=== PATIENT | female | born 1975 | race Caucasian/White ===

== ENCOUNTER 2017-09-05 14:44 | Emergency (ER) | payer BC, SELFPAY | END 2017-09-05 15:55 | disposition left against medical advice (07) | PROVIDERS: Emergency Provider Nurse Practitioner Family; Family Provider Emergency Medicine; PCP Emergency Medicine | DX: Z53.29 Procedure and treatment not carried out because of patient's decision for other reasons (principal) ==

== ENCOUNTER 2017-09-09 20:38 | Emergency (ER) | payer BC, SELFPAY ==
[2017-09-09 20:39] VITALS: BP 111/73; PULSE 97; RESP 16; TEMP 36.8; O2SAT 96; BMI 42.1
[2017-09-09 20:40] VITALS: BMI 42.1
--- NOTE | 2017-09-09 20:58 | XR_ITS ---
XR chest 2V HISTORY: ITS.REASON: chest pain ORDERING PHYSICIAN: Vipul Velazquez MD PATIENT AGE: 41 years COMPARISON: 11/11/2015 FINDINGS: The cardiomediastinal silhouette and pulmonary vascularity are within normal limits. The lungs are clear without infiltrates, suspicious nodules, or pleural effusions. No acute bony abnormalities. IMPRESSION: Negative chest, no acute finding
[2017-09-09 21:31] LABS: Alanine Aminotransferase 21 U/L (12-78); Albumin Level 3.8 gm/dL (3.4-5.0); Albumin/Globulin Ratio 1.1 (1.1-1.8); Alkaline Phosphatase 53 U/L (46-116); Aspartate Amino Transferase 11 U/L (15-37); Bilirubin,Total 0.2 mg/dL (0.2-1.0); Blood Urea Nitrogen 12 mg/dL (7-18); Carbon Dioxide 26 mmol/L (21.0-32.0); Chloride 105 mmol/L (98-107); Creatinine Clearance Estimated 71 mL/min (0-300); Creatinine,Serum 1.03 mg/dL (0.55-1.02); Estimated Glomerular Filt Rate 59 ml/min (>60); GFR (African American) 72 ML/MIN (>60); Globulin 3.5 gm/dl (1.3-3.2); Glucose 151 mg/dL (74-106); Sodium 140 mmol/L (136-145); Total Protein,Serum 7.3 gm/dL (6.4-8.2); Troponin I < 0.02 ng/ml (0.00-0.06)
[2017-09-09 21:39] LABS: Basophils # 0.1 K/mm3 (0-0.2); Basophils % 0.5 % (0.1-2.0); Eosinophils # 0.3 K/mm3 (0.0-0.4); Eosinophils % 2.7 % (0.1-12.0); Hematocrit 45.2 % (37.0-47.0); Hemoglobin 14.7 g/dL (12.2-16.2); Lymphocytes # 2.4 K/mm3 (0.7-4.5); Lymphocytes % 26.1 K/mm3 (10-50); Mean Corpuscular HGB Conc 32.5 g/dL (31.8-35.4); Mean Corpuscular Hemoglobin 29.2 pg (27.0-31.2); Mean Corpuscular Volume 89.7 fl (81-99); Mean Platelet Volume 8.2 fl (7.4-10.4); Monocytes # 0.4 K/mm3 (0.1-1.0); Monocytes % 4.4 % (1.7-9.3); Neutrophils # 6.2 K/mm3 (1.8-7.8); Neutrophils % 66.3 % (37.0-80.0); Platelet Count 357 K/mm3 (142-424); Red Blood Count 5.04 M/mm3 (4.20-5.40); Red Cell Distribution Width 13.3 % (11.5-17.5); White Blood Count 9.3 K/mm3 (4.8-10.8)
[2017-09-09 21:50] LABS: Urine Pregnancy, HCG Qual. Negative (Negative)
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
--- NOTE | 2017-09-09 22:07 | ED_ITS ---
ED Disposition Clinical Impression: Atypical chest pain, Bronchitis Disposition: Home, Self-Care Condition on Discharge: Good Instructions: DI for Atypical Chest Pain Additional Instructions: use meds and see pcp for follow up next week Prescriptions: Azithromycin [Zithromax 250mg tab] 250 mg PO DIRECTED #6 tab Referrals: Vipul Velazquez MD [Primary Care Provider] - - Critical Care Critical Care Time: No Attestation: On 09/09/17, the high probability of a clinically significant, sudden or life threatening deterioration of the following system(s) required my full and direct attention, intervention and personal management. The time I documented below is in addition to time spent performing reported procedures but includes the following listed in this critical care notation. Medical Decision Making - Medical Records Medical records reviewed: Yes: I reviewed the patient's medical records. Vital Signs: 09/09/17 20:39 Temperature 98.2 F Temperature Source Oral Pulse Rate [Left Radial] 97 H Respiratory Rate 16 Blood Pressure [Right Arm] 111/73 Blood Pressure Mean [Right Arm] 85 Blood Pressure Source [Right Arm] Automatic Cuff Blood Pressure Position [Right Arm] Sitting 02 Sat by Pulse Oximetry 96 Oxygen Delivery Method Room Air - Lab Data Lab results reviewed: Yes: I reviewed the patient's lab results. Lab Results 09/09/17 21:00: WBC 9.3, RBC 5.04, Hgb 14.7, Hct 45.2, MCV 89.7, MCH 29.2, MCHC 32.5, RDW 13.3, Plt Count 357, MPV 8.2, Neut % (Auto) 66.3, Lymph % (Auto) 26.1 , [place] % (Auto) 4.4, Eos % (Auto) 2.7, Baso % (Auto) 0.5, Neut # (Auto) 6.2, Lymph # (Auto) 2.4, [place] # (Auto) 0.4, Eos # (Auto) 0.3, Baso # (Auto) 0.1 09/09/17 21:00: Sodium 140, Potassium 4.0, Chloride 105, Carbon Dioxide 26, Anion Gap 13.0, BUN 12, Creatinine 1.03 H, Estimated Creat Clear 71, Estimated GFR 59, Est GFR ( Amer) 72, Glucose 151 H, Calcium 9.0, Total Bilirubin 0.2, AST 11 L, ALT 21, Alkaline Phosphatase 53, Troponin I < 0.02, Total Protein 7.3, Albumin 3.8, Globulin 3.5 H, Albumin/Globulin Ratio 1.1 09/09/17 21:30: Urine HCG, Qual Negative Result diagrams: 09/09/17 21:00 09/09/17 21:00 Orders (Tests/Meds): ED MEDICATIONS Discontinued Medications Generic Name Dose Route Start Last Admin Trade Name Freq PRN Reason Stop Dose Admin Aspirin 324 mg 09/09/17 20:58 09/09/17 21:34 Aspirin 81mg Chewable Tablet PO 09/09/17 20:59 324 mg ONCE ONE Administration ORDERS Category Date Time Status XR chest 2V Stat Exams 09/09/17 20:58 Taken Troponin I Q3H Lab 09/10/17 00:00 Ordered Troponin I Q3H Lab 09/10/17 03:00 Ordered ECG Request by /Susan Stat Y 09/09/17 20:58 Ordered - Radiology Data #1 Image(s): Chest Image Reviewed: Yes I reviewed the patient's radiology image Preliminary Findings: Normal/NAD - ECG Data Tracing #1 I reviewed this ECG and interpreted as documented below: Ischemic changes: non-specific ST-T wave changes - Scot Inquiry Pt receiving controlled substance: No Chest Pain HPI - General Chief Complaint: Chest Pain Stated Complaint: chest pain Time Seen by Provider: 09/09/17 22:10 Mode of Arrival: Ambulatory Source of Information: Patient, Relative, Medical Record Limitations: No Limitations Description of S
[2017-09-09 22:35] VITALS: BP 97/72; PULSE 87; RESP 16; TEMP 37.1; O2SAT 98
== END 2017-09-09 22:38 | disposition home or self-care (01) ==
PROVIDERS: Emergency Provider Emergency Medicine; Family Provider Emergency Medicine; PCP Emergency Medicine
DX: R07.89 Other chest pain (principal); I10 Essential (primary) hypertension; E11.9 Type 2 diabetes mellitus without complications; Z79.84 Long term (current) use of oral hypoglycemic drugs; F17.210 Nicotine dependence, cigarettes, uncomplicated; Z79.899 Other long term (current) drug therapy; Z88.8 Allergy status to other drugs, medicaments and biological substances
CPT/HCPCS: 71046; 80053; 81025; 84484; 85025; 93005; 93041; 99284

== ENCOUNTER → 2017-11-10 08:48 | Outpatient (REF) | payer BC, SELFPAY ==
[2017-11-10 13:30] LABS: Basophils # 0.1 K/mm3 (0-0.2); Basophils % 0.4 % (0.1-2.0); Eosinophils # 0.2 K/mm3 (0.0-0.4); Eosinophils % 2.1 % (0.1-12.0); Hematocrit 48.3 % (37.0-47.0); Hemoglobin 15.3 g/dL (12.2-16.2); Lymphocytes # 2.4 K/mm3 (0.7-4.5); Lymphocytes % 20.8 K/mm3 (10-50); Mean Corpuscular HGB Conc 31.6 g/dL (31.8-35.4); Mean Corpuscular Hemoglobin 29.6 pg (27.0-31.2); Mean Corpuscular Volume 93.8 fl (81-99); Monocytes # 0.6 K/mm3 (0.1-1.0); Monocytes % 5.2 % (1.7-9.3); Neutrophils # 8.1 K/mm3 (1.8-7.8); Neutrophils % 71.5 % (37.0-80.0); Platelet Count 344 K/mm3 (142-424); Red Blood Count 5.15 M/mm3 (4.20-5.40); Red Cell Distribution Width 13.6 % (11.5-17.5); White Blood Count 11.4 K/mm3 (4.8-10.8)
[2017-11-10 13:53] LABS: HCG Qualitative, Serum Negative (Negative)
[2017-11-10 14:01] LABS: Alanine Aminotransferase 30 U/L (12-78); Albumin Level 3.8 gm/dL (3.4-5.0); Albumin/Globulin Ratio 1.1 (1.1-1.8); Alkaline Phosphatase 55 U/L (46-116); Anion Gap 14.5 mEq/L (5-15); Aspartate Amino Transferase 10 U/L (15-37); Bilirubin,Total 0.1 mg/dL (0.2-1.0); Blood Urea Nitrogen 11 mg/dL (7-18); Carbon Dioxide 25 mmol/L (21.0-32.0); Chloride 105 mmol/L (98-107); Cholesterol 260 mg/dL (140-200); Creatinine,Serum 0.79 mg/dL (0.55-1.02); Estimated Glomerular Filt Rate 81 ml/min (>60); Free T4 (Free Thyroxine) 1.13 ng/dl (0.76-1.46); GFR (African American) 98 ML/MIN (>60); Globulin 3.4 gm/dl (1.3-3.2); HDL Cholesterol 29 mg/dL (29-89); Potassium 4.5 mmoL/L (3.5-5.1); Sodium 140 mmol/L (136-145); Thyroid Stimulating Hormone 2.96 uIU/ml (0.358-3.740); Total Protein,Serum 7.2 gm/dL (6.4-8.2)
[2017-11-10 14:02] LABS: Triglycerides 567 mg/dL (30-200)
[2017-11-10 14:03] LABS: Glucose 129 mg/dL (74-106)
[2017-11-11 10:30] LABS: Vitamin D 25 Hydroxy 7.1 ng/mL (30.0-100.0)
== END ==
LOC: LAB 08:48
PROVIDERS: Visit Provider Nurse Practitioner Family
DX: R53.83 Other fatigue (principal)
CPT/HCPCS: 80053; 80061; 82652; 83036; 84439; 84443; 84703; 85025

== ENCOUNTER → 2017-11-25 10:31 | Outpatient (CLI) | payer BC, SELFPAY ==
[2017-11-25 10:47] LABS: Basophils % 0.4 % (0.1-2.0); Eosinophils # 0.3 K/mm3 (0.0-0.4); Eosinophils % 2.4 % (0.1-12.0); Hematocrit 44.8 % (37.0-47.0); Hemoglobin 14.9 g/dL (12.2-16.2); Lymphocytes # 2.7 K/mm3 (0.7-4.5); Lymphocytes % 24.3 K/mm3 (10-50); Mean Corpuscular HGB Conc 33.3 g/dL (31.8-35.4); Mean Corpuscular Hemoglobin 30.1 pg (27.0-31.2); Mean Corpuscular Volume 90.3 fl (81-99); Mean Platelet Volume 7.6 fl (7.4-10.4); Monocytes # 0.5 K/mm3 (0.1-1.0); Monocytes % 4.4 % (1.7-9.3); Neutrophils # 7.6 K/mm3 (1.8-7.8); Neutrophils % 68.6 % (37.0-80.0); Platelet Count 368 K/mm3 (142-424); Red Blood Count 4.96 M/mm3 (4.20-5.40); Red Cell Distribution Width 13.9 % (11.5-17.5)
[2017-11-25 11:23] LABS: Alanine Aminotransferase 23 U/L (12-78); Albumin Level 3.7 gm/dL (3.4-5.0); Albumin/Globulin Ratio 1.1 (1.1-1.8); Alkaline Phosphatase 54 U/L (46-116); Anion Gap 13.2 mEq/L (5-15); Aspartate Amino Transferase 16 U/L (15-37); Bilirubin,Total 0.2 mg/dL (0.2-1.0); Blood Urea Nitrogen 16 mg/dL (7-18); Calcium 9.1 mg/dL (8.5-10.1); Carbon Dioxide 25 mmol/L (21.0-32.0); Chloride 103 mmol/L (98-107); Chol/HDL Ratio 8.5 (1-3.5); Cholesterol 255 mg/dL (140-200); Creatinine,Serum 0.83 mg/dL (0.55-1.02); Estimated Glomerular Filt Rate 76 ml/min (>60); GFR (African American) 92 ML/MIN (>60); Globulin 3.4 gm/dl (1.3-3.2); Glucose 113 mg/dL (74-106); HDL Cholesterol 30 mg/dL (29-89); Potassium 4.2 mmoL/L (3.5-5.1); Sodium 137 mmol/L (136-145); Total Protein,Serum 7.1 gm/dL (6.4-8.2)
[2017-11-25 11:28] LABS: Triglycerides 437 mg/dL (30-200)
== END ==
PROVIDERS: Visit Provider Family Medicine
DX: D64.9 Anemia, unspecified (principal); E11.9 Type 2 diabetes mellitus without complications
CPT/HCPCS: 36415; 80053; 80061; 85025

== ENCOUNTER → 2018-01-11 10:54 | Outpatient (CLI) | payer BC, SELFPAY ==
[2018-01-11 13:44] LABS: Free Thyroxine Index 3.1 ug/dL (5.93-13.13); T4 (Thyroxine) 8.8 ug/dl (4.7-13.3); Thyroid Stimulating Hormone 2.28 uIU/ml (0.358-3.740); Triiodothryronine (T3) Uptake 35 % (31-39)
[2018-01-12 07:21] LABS: Thyroid Peroxidase Antibodies 13 IU/mL (0-34)
[2018-01-12 15:17] LABS: FSH 33.2 mIU/mL (.); LH 21.2 mIU/mL (.); Triiodothyronine (T3) Free 2.6 pg/mL (2.0-4.4)
== END ==
PROVIDERS: Visit Provider Nurse Practitioner Obstetrics & Gynecology
DX: N93.9 Abnormal uterine and vaginal bleeding, unspecified (principal)
CPT/HCPCS: 36415; 83001; 83002; 84436; 84443; 84479; 84481; 86376

== ENCOUNTER → 2018-06-07 10:10 | Outpatient (POV) | payer BC, SELFPAY | PROVIDERS: Family Provider Emergency Medicine; PCP Nurse Practitioner Family; Visit Provider Specialist | DX: R20.2 Paresthesia of skin (principal) | CPT/HCPCS: 95886; 95909 ==

== ENCOUNTER → 2018-06-22 11:36 | Outpatient (CLI) | payer BC, SELFPAY ==
[2018-06-22 12:53] LABS: Alanine Aminotransferase 22 U/L (12-78); Albumin Level 3.7 gm/dL (3.4-5.0); Albumin/Globulin Ratio 1.2 (1.1-1.8); Alkaline Phosphatase 51 U/L (46-116); Anion Gap 15.5 mEq/L (5-15); Aspartate Amino Transferase 15 U/L (15-37); Bilirubin,Total 0.3 mg/dL (0.2-1.0); Blood Urea Nitrogen 18 mg/dL (7-18); Carbon Dioxide 26 mmol/L (21.0-32.0); Chloride 105 mmol/L (98-107); Chol/HDL Ratio 6.9 (1-3.5); Cholesterol 271 mg/dL (140-200); Creatinine,Serum 0.72 mg/dL (0.55-1.02); Estimated Glomerular Filt Rate 89 ml/min (>60); GFR (African American) 108 ML/MIN (>60); Glucose 100 mg/dL (74-106); HDL Cholesterol 39 mg/dL (29-89); LDL Cholesterol 178 mg/dL (0-130); Potassium 4.5 mmoL/L (3.5-5.1); Sodium 142 mmol/L (136-145); Total Protein,Serum 6.7 gm/dL (6.4-8.2); Triglycerides 271 mg/dL (30-200); VLDL Cholesterol 54 mg/dL (0-40)
== END ==
PROVIDERS: PCP Family Medicine; Visit Provider Family Medicine
DX: E11.9 Type 2 diabetes mellitus without complications (principal)
CPT/HCPCS: 36415; 80053; 80061

== ENCOUNTER → 2018-06-30 20:05 | Outpatient (CLI) | payer BC, SELFPAY | PROVIDERS: Visit Provider Nurse Practitioner Family | DX: J02.9 Acute pharyngitis, unspecified (principal) ==

== ENCOUNTER → 2018-10-28 11:31 | Outpatient (CLI) | payer BC, SELFPAY ==
[2018-10-28 12:06] LABS: Basophils # 0.1 K/mm3 (0-0.2); Basophils % 0.6 % (0.1-2.0); Eosinophils # 0.2 K/mm3 (0.0-0.4); Eosinophils % 1.7 % (0.1-12.0); Hematocrit 43.9 % (37.0-47.0); Lymphocytes # 2.5 K/mm3 (0.7-4.5); Mean Corpuscular HGB Conc 31.8 g/dL (31.8-35.4); Mean Corpuscular Hemoglobin 30.7 pg (27.0-31.2); Mean Corpuscular Volume 96.7 fl (81-99); Mean Platelet Volume 7.7 fl (7.4-10.4); Monocytes # 0.4 K/mm3 (0.1-1.0); Monocytes % 4.4 % (1.7-9.3); Neutrophils # 5.9 K/mm3 (1.8-7.8); Neutrophils % 65.4 % (37.0-80.0); Platelet Count 282 K/mm3 (142-424); Red Blood Count 4.54 M/mm3 (4.20-5.40); Red Cell Distribution Width 13.6 % (11.5-17.5); White Blood Count 9.1 K/mm3 (4.8-10.8)
[2018-10-28 13:32] LABS: Alanine Aminotransferase 20 U/L (12-78); Albumin Level 3.5 gm/dL (3.4-5.0); Albumin/Globulin Ratio 1.2 (1.1-1.8); Alkaline Phosphatase 47 U/L (46-116); Anion Gap 18.1 mEq/L (5-15); Aspartate Amino Transferase 8 U/L (15-37); Bilirubin,Total 0.1 mg/dL (0.2-1.0); Blood Urea Nitrogen 11 mg/dL (7-18); Calcium 8.6 mg/dL (8.5-10.1); Carbon Dioxide 23 mmol/L (21.0-32.0); Chloride 103 mmol/L (98-107); Chol/HDL Ratio 6.9 (1-3.5); Cholesterol 248 mg/dL (140-200); Creatinine,Serum 0.84 mg/dL (0.55-1.02); Estimated Glomerular Filt Rate 75 ml/min (>60); Free Thyroxine Index 2.6 ug/dL (5.93-13.13); GFR (African American) 90 ML/MIN (>60); Glucose 104 mg/dL (74-106); HDL Cholesterol 36 mg/dL (29-89); Potassium 4.1 mmoL/L (3.5-5.1); Sodium 140 mmol/L (136-145); T4 (Thyroxine) 7.3 ug/dl (4.7-13.3); Thyroid Stimulating Hormone 2.24 uIU/ml (0.358-3.740); Total Protein,Serum 6.5 gm/dL (6.4-8.2); Triiodothryronine (T3) Uptake 35 % (31-39)
[2018-10-28 13:36] LABS: Triglycerides 449 mg/dL (30-200)
[2018-10-29 07:15] LABS: HIV Screen 4th Generation wRfx Non Reactive (Non Reactive)
[2018-10-29 12:36] LABS: FSH 9.2 mIU/mL (.); Hepatitis C Antibody <0.1 s/co ratio (0.0-0.9); LH 5.4 mIU/mL (.); Rapid Plasma Reagin Ab Titer Non Reactive (NonRea<1:1); Triiodothyronine (T3) Free 2.4 pg/mL (2.0-4.4)
== END ==
PROVIDERS: Visit Provider Nurse Practitioner Obstetrics & Gynecology
DX: Z78.0 Asymptomatic menopausal state (principal); Z72.51 High risk heterosexual behavior
CPT/HCPCS: 80053; 80061; 83001; 83002; 84436; 84443; 84479; 84481; 85025; 86592; 86703; 87380; G0432

== ENCOUNTER → 2018-11-10 10:26 | Outpatient (CLI) | payer BC, SELFPAY ==
--- NOTE | 2018-11-10 10:29 | MM_ITS ---
MM Dig screening mamm BI w/CAD ORDERING PHYSICIAN : Spike Benitez MD PATIENT AGE: 42 years GENDER: Female COMPARISON: Only one prior mammogram from August 2014 bilateral mammogram INDICATION: ITS..: Routine Screening Mammogram No hormones. Noncontributory family history No new complaints... Patient Does report 116 pound weight loss since prior mammogram TECHNIQUE: Standard CC and MLO images were obtained. R2 CAD reviewed. Additional left axillary cc view FINDINGS: Lower density breast bilaterally with generalized fatty replacement. . No dominant mass nor suspicious calcifications... Slight heterogeneously bilaterally with areas of slight asymmetry- but these seem to correlate with areas of previously seen on prior studies. CAD Computer-assisted review highlights no areas of concern either. . IMPRESSION: No new findings of significant concern.. Overall stable bilateral mammogram. Follow-up in one year recommended and encouraged BI-RADS Category: 2 Benign Finding(s) RECOMMENDED FOLLOW-UP: 1YR 1 YEAR FOLLOW-UP (A letter has been sent to the patient regarding results of the study.)
--- NOTE | 2018-11-10 10:29 | US_ITS ---
US transvaginal HISTORY: Lower pelvic pain with irregular cycles, dysfunctional uterine bleeding ITS.REASON: US T/V- R/O Ovarian Cyst ORDERING PHYSICIAN: Spike Benitez MD PATIENT AGE: 42 years Comparison: None FINDINGS: The uterus measures 8 x 4 x 5 cm with a combined endometrial thickness of 13 mm. There is increase echogenicity along the posterior aspect of the endometrium without shadowing The left ovary is 4 x 3 x 3 cm containing multiple cysts the largest at 2.5 cm. The right ovary is 2.5 x 1.9 cm. Small amount of cul-de-sac fluid noted. IMPRESSION: 1. Thickened endometrium with increased echogenicity posteriorly which could be due to hyper acute blood, calcification, or air. 2. Left ovarian cysts measuring up to 2.5 cm with small amount fluid in the cul-de-sac
== END ==
PROVIDERS: PCP Family Medicine; Visit Provider Nurse Practitioner Obstetrics & Gynecology
DX: Z12.31 Encounter for screening mammogram for malignant neoplasm of breast (principal); N83.202 Unspecified ovarian cyst, left side
CPT/HCPCS: 76830; 77067

== ENCOUNTER → 2020-01-11 16:16 | Outpatient (CLI) | payer BC, SELFPAY ==
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
== END ==
PROVIDERS: PCP Family Medicine; Visit Provider Family Medicine
DX: M79.601 Pain in right arm (principal)
CPT/HCPCS: 73060; 73090

== ENCOUNTER → 2020-04-28 11:39 | Outpatient (CLI) | payer BC, SELFPAY ==
[2020-04-29 12:38] LABS: Hep A Ab, IgM Negative (Negative); Hepatitis B Core Antibody IgM Negative (Negative); Hepatitis B Surface Antigen Negative (Negative)
[2020-04-29 14:16] LABS: HIV Screen 4th Generation wRfx Non Reactive (Non Reactive)
[2020-04-29 14:17] LABS: Hepatitis C Antibody <0.1 s/co ratio (0.0-0.9)
[2020-04-29 18:48] LABS: Rapid Plasma Reagin Ab Titer Non Reactive (NonRea<1:1)
[2020-04-30 09:53] LABS: HSV 2 IgG, Type Spec <0.91 index (0.00-0.90)
== END ==
PROVIDERS: Visit Provider Nurse Practitioner Obstetrics & Gynecology
DX: Z72.51 High risk heterosexual behavior (principal)
CPT/HCPCS: 36415; 80074; 86592; 86695; 86703; 86790; G0432

== ENCOUNTER → 2020-05-05 13:22 | Outpatient (CLI) | payer BC, SELFPAY ==
[2020-05-06 09:18] LABS: Covid-19 Nasal PCR Sendout UK Not Detected
== END ==
PROVIDERS: PCP Family Medicine; Visit Provider Nurse Practitioner
DX: Z03.818 Encounter for observation for suspected exposure to other biological agents ruled out (principal)
CPT/HCPCS: U0003

== ENCOUNTER 2020-05-29 20:31 | Emergency (ER) | payer OTHER, SELFPAY ==
[2020-05-29 20:36] VITALS: BP 132/78; PULSE 77; RESP 16; O2SAT 98; BMI 40.3
[2020-05-29 20:50] VITALS: BP 132/78; PULSE 77; RESP 16; TEMP 36.7; O2SAT 98; BMI 40.1
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
[2020-05-29 21:01] VITALS: BP 132/78; PULSE 77; RESP 16; TEMP 36.7; O2SAT 98
== END 2020-05-29 21:16 | disposition home or self-care (01) ==
PROVIDERS: Emergency Provider Nurse Practitioner; PCP Family Medicine
DX: M79.641 Pain in right hand (principal); M79.642 Pain in left hand; M25.631 Stiffness of right wrist, not elsewhere classified; M25.632 Stiffness of left wrist, not elsewhere classified; V40.5XXA Car driver injured in collision with pedestrian or animal in traffic accident, initial encounter; Y92.488 Other paved roadways as the place of occurrence of the external cause
CPT/HCPCS: 73090; 73130; 99201

== ENCOUNTER → 2020-11-27 19:18 | Outpatient (CLI) | payer BC, SELFPAY | PROVIDERS: Visit Provider Nurse Practitioner Family | DX: Z20.822 Contact with and (suspected) exposure to COVID-19 (principal) | CPT/HCPCS: U0003 ==

== ENCOUNTER 2021-02-01 09:38 | Emergency (ER) | payer BC, SELFPAY ==
[2021-02-01 09:50] VITALS: BP 128/76; PULSE 100; RESP 18; TEMP 36.8; O2SAT 98; BMI 43.7
[2021-02-01 09:52] VITALS: BMI 43.7
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
[2021-02-01 10:22] VITALS: BP 128/76; PULSE 100; RESP 18; TEMP 36.8; O2SAT 98
== END 2021-02-01 10:43 | disposition home or self-care (01) ==
PROVIDERS: Emergency Provider Nurse Practitioner Family; PCP Family Medicine
DX: S60.212A Contusion of left wrist, initial encounter (principal); S60.211A Contusion of right wrist, initial encounter; S60.222A Contusion of left hand, initial encounter; S60.221A Contusion of right hand, initial encounter; W22.8XXA Striking against or struck by other objects, initial encounter; Y92.019 Unspecified place in single-family (private) house as the place of occurrence of the external cause; E11.9 Type 2 diabetes mellitus without complications; I10 Essential (primary) hypertension; E78.5 Hyperlipidemia, unspecified; Z87.891 Personal history of nicotine dependence
CPT/HCPCS: 73090; 73110; 73130; 99202; G0463

== ENCOUNTER → 2021-08-05 14:44 | Outpatient (CLI) | payer BC, SELFPAY ==
[2021-08-05 16:29] LABS: Basophils # 0.1 K/mm3 (0-0.2); Basophils % 1.3 % (0.1-2.0); Eosinophils # 0.2 K/mm3 (0.0-0.4); Eosinophils % 3.2 % (0.1-12.0); Hematocrit 39.8 % (37.0-47.0); Hemoglobin 13.2 g/dL (12.2-16.2); Lymphocytes # 1.4 K/mm3 (0.7-4.5); Mean Corpuscular HGB Conc 33.3 g/dL (31.8-35.4); Mean Corpuscular Hemoglobin 30.3 pg (27.0-31.2); Mean Corpuscular Volume 91.1 fl (81-99); Mean Platelet Volume 11.3 fl (7.4-10.4); Monocytes # 0.3 K/mm3 (0.1-1.0); Monocytes % 4.5 % (1.7-9.3); Neutrophils # 4.2 K/mm3 (1.8-7.8); Platelet Count 234 K/mm3 (142-424); Red Blood Count 4.37 M/mm3 (4.20-5.40); Red Cell Distribution Width 13.5 % (11.5-17.5); White Blood Count 6.2 K/mm3 (4.8-10.8)
[2021-08-05 16:53] LABS: Chloride 98 mmol/L (98-107); Potassium 4.5 mmoL/L (3.5-5.1); Sodium 138 mmol/L (136-145)
[2021-08-05 16:55] LABS: Blood Urea Nitrogen 10 mg/dl (7-17); Estimated Glomerular Filt Rate 109 ml/min (>60); GFR (African American) 131 ML/MIN (>60)
[2021-08-05 16:56] LABS: Alanine Aminotransferase 47 U/L (12-78); Albumin Level 4.5 g/dl (3.5-5.0); Albumin/Globulin Ratio 1.6 (1.1-1.8); Alkaline Phosphatase 75 U/L (38-126); Anion Gap 12.5 mEq/L (5-15); Aspartate Amino Transferase 62 U/L (14-36); Bilirubin,Total 0.2 mg/dl (0.2-1.3); Carbon Dioxide 32 mmol/L (22.0-30.0); Chol/HDL Ratio 7.6 (1-3.5); Cholesterol 265 mg/dl (140-200); Globulin 2.8 g/dL (1.3-3.2); Glucose 283 mg/dl (74-100); HDL Cholesterol 35 mg/dl (40-60); Total Protein,Serum 7.3 g/dl (6.3-8.2)
[2021-08-05 16:59] LABS: Triglycerides 455 mg/dl (30-150)
[2021-08-05 17:07] LABS: Direct LDL Cholesterol 161.21 mg/dL (100-129)
[2021-08-05 17:13] LABS: T4 (Thyroxine) 10.7 ug/dl (5.53-11.0)
[2021-08-05 17:26] LABS: Thyroid Stimulating Hormone 2.69 uIU/mL (0.465-4.68)
[2021-08-05 18:02] LABS: Hemoglobin A1C 11.4 % (4.0-6.0)
[2021-08-05 22:48] LABS: 25-OH Vitamin D, Total 69.7 ng/mL (30-100)
== END ==
PROVIDERS: Visit Provider Nurse Practitioner Family
DX: E11.9 Type 2 diabetes mellitus without complications (principal); I10 Essential (primary) hypertension; E78.2 Mixed hyperlipidemia; E66.9 Obesity, unspecified; Z68.41 Body mass index [BMI] 40.0-44.9, adult; J02.9 Acute pharyngitis, unspecified
CPT/HCPCS: 80053; 80061; 82043; 82306; 83036; 84436; 84443; 84681; 85025

== ENCOUNTER → 2021-09-04 12:24 | Outpatient (CLI) | payer BC, SELFPAY | PROVIDERS: PCP Nurse Practitioner Family; Visit Provider Nurse Practitioner | DX: Z20.822 Contact with and (suspected) exposure to COVID-19 (principal) | CPT/HCPCS: C9803; U0003; U0005 ==

== ENCOUNTER 2021-09-10 15:36 | Emergency (ER) | payer BC, SELFPAY ==
[2021-09-10 17:25] VITALS: BP 0/0; PULSE 0; RESP 0; TEMP -17.7; TEMP 0; O2SAT 0
== END 2021-09-10 17:25 | disposition left against medical advice (07) ==
LOC: UTC 15:42
PROVIDERS: Emergency Provider Nurse Practitioner; PCP Emergency Medicine
DX: Z53.21 Procedure and treatment not carried out due to patient leaving prior to being seen by health care provider (principal)

== ENCOUNTER 2021-09-18 15:15 | Emergency (ER) | payer BC, SELFPAY ==
[2021-09-18 17:03] VITALS: BP 140/82; PULSE 97; RESP 20; TEMP 36.9; O2SAT 95; BMI 40.7
--- NOTE | 2021-09-18 17:24 | HMH.EDUTC ---
[facility] [place] Disposition Clinical Impression: Acute bronchitis Qualifiers: Bronchitis organism: unspecified organism Qualified Code(s): J20.9 - Acute bronchitis, unspecified Disposition: Home, Self-Care Condition on Discharge: Good Instructions: Preventing the Spread of Coronavirus Discharge Instructions, DI for COVID-19 (Suspected or Confirmed ), DI for Acute Bronchitis Additional Instructions: Drink plenty of fluids. Take tylenol or ibuprofen for pain or fever. Take the medications as directed. Follow up with your regular doctor. GO TO THE ER FOR ANY WORSENING SYMPTOMS Quarantine until you know the results of your covid-19 test. Notify your school or workplace of your results and follow their instructions regarding return to work/school. The cough medication (promethazine dm) will make you drowsy, so don't drive or operate heavy machinery after taking it. Follow your diabetic diet closely while you are on the steroids. They will make your blood sugars go up. Take the probiotics as directed. Prescriptions: Albuterol Sulfate [Albuterol Sulfate Hfa] 2 puffs IH Q6HP PRN 30 Days #1 each PRN Reason: Shortness Of Breath Transmission Status: Pending to [facility] Amoxicillin/Potassium Clav [Augmentin 875-125 Tablet] 1 tab PO Q12H 10 Days #20 tab Transmission Status: Pending to [facility] methylPREDNISolone [Medrol] 4 mg PO DIRECTED 6 Days #21 packet Transmission Status: Pending to [facility] Lactobacillus 3/Fos/Pantethine [Probiotic & Acidophilus Cap] 1 each PO BID 30 Days #60 cap Transmission Status: Pending to [facility] Referrals: Araceli Mendez APRN [Primary Care Provider] - Time of Disposition: 17:44 Medical Decision Making - Medical Records Medical records reviewed: No: I reviewed the patient's medical records. - Scot Inquiry Pt receiving controlled substance: No Vital Signs: 09/18/21 17:03 Temperature 98.4 F Temperature Source Oral Pulse Rate [Left] 97 H Respiratory Rate 20 Blood Pressure [Right Arm] 140/82 Blood Pressure Mean [Right Arm] 101 02 Sat by Pulse Oximetry 95 - Lab Data Lab results reviewed: Yes: I reviewed the patient's lab results. Orders (Tests/Meds): ORDERS Category Date Time Status Covid-19 Nasal PCR ([facility]) Routine Lab 09/18/21 17:09 Received [facility] [place] HPI - General Stated complaint: exposed, cough runny nose Time Seen by Provider: 09/18/21 17:24 Mode of Arrival: Ambulatory Source of Information: Patient Limitations: No Limitations Description of Symptoms (Recalled from Triage Doc. by RN): pt c/o sinus congestion and cough. mom has covid. HEENT Symptoms (Recalled from RN notes): Yes (sinus congestion) Resp Symptoms (Recalled from RN notes): Yes (cough) Skin Symptoms (Recalled from RN notes): No MS Symptoms (Recalled from RN notes): No Functional Status (Recalled from RN notes): wnl - History of Present Illness Provider Complaint: She says that she has had bronchitis for the past 2 weeks. She has been to the clinic in [facility] twice for this. She has tested negative for covid-19 twice. She request to be prescribed steroids. She states that in the past she when she got bronchitis like this it took steroids to get her better. She is a diabetic. - Related Data Home Medications Medication Instructions Recorded Confirmed baclofen 10 mg tablet mg PO 04/17/20 09/11/21 blood sugar diagnostic See Rx Instructions .ROUTE 11/27/20 09/11/21 .MEDSUPPLY #10 each blood-glucose meter See Rx Instructions .ROUTE 11/27/20 09/11/21 .MEDSUPPLY #1 each lancets 28 gauge See Rx Instructions .ROUTE 11/27/20 09/09/21 .MEDSUPPLY #100 each gabapentin 600 mg tablet 600 mg PO TID tab 08/05/21 09/11/21 hydrocodone 10 mg-acetaminophen 1 tab PO TID-QID PRN tab 08/05/21 09/11/21 325 mg tablet insulin pump cartridge See Rx Instructions .ROUTE 08/30/21 09/11/21 .MEDSUPPLY #5 each
[2021-09-18 17:45] VITALS: BP 140/82; PULSE 97; RESP 20; TEMP 36.9
== END 2021-09-18 18:01 | disposition home or self-care (01) ==
PROVIDERS: Emergency Provider Nurse Practitioner Family; PCP Nurse Practitioner Family
DX: U07.1 COVID-19 (principal); J20.9 Acute bronchitis, unspecified; E11.9 Type 2 diabetes mellitus without complications; E78.5 Hyperlipidemia, unspecified; I10 Essential (primary) hypertension; E11.40 Type 2 diabetes mellitus with diabetic neuropathy, unspecified; M19.90 Unspecified osteoarthritis, unspecified site
CPT/HCPCS: 99202; C9803; G0463; U0003; U0005

== ENCOUNTER 2021-09-26 10:53 | Emergency (ER) | payer BC, SELFPAY ==
[2021-09-26 12:15] VITALS: BP 111/75; PULSE 95; RESP 18; TEMP 36.8; O2SAT 99; BMI 40.2
--- NOTE | 2021-09-26 12:48 | HMH.EDUTC ---
[facility] [place] Clinical Impression: Sore throat (viral) Disposition: Home, Self-Care Condition on Discharge: Good Instructions: Sore Throat, DI for Ear Pain-Adult Additional Instructions: *Monitor Temp, Over the counter Motrin or Tylenol as directed/as needed Tylenol every 4 hours and Motrin every 6 hours (as long as your family doctor has told you that you can take it) for fever or pain. and straight to ER if unable to lower temp less than 101.0 after medication given *Warm salt water gargles may help to soothe the throat *Throat Lozenges *Warm fluids like tea with honey may help to soothe the throat *Sleep elevated *Humidifier/Vaporizer Your throat swab was sent for culture. Those results are typically sent to your primary care. Be sure to follow up in 2-3 days with your family doctor/primary care physician if no improvement so they can review those result and treat if necessary. If you don?t have a primary care doctor, I recommend you get one but in the mean time, you will have to return to a walk in clinic Follow up IMMEDIATELY for new or worsening symptoms or no Noticeable improvement over the next 48-72 hours. 911 for difficulty breathing or swallowing Referrals: Araceli Mendez APRN [Primary Care Provider] - Time of Disposition: 13:17 Medical Decision Making - Scot Inquiry Pt receiving controlled substance: No Scot was queried for this patient: No Vital Signs: 09/26/21 12:15 Temperature 98.2 F Temperature Source Oral Pulse Rate [Right Brachial] 95 H Respiratory Rate 18 Blood Pressure [Right Arm] 111/75 Blood Pressure Mean [Right Arm] 87 Blood Pressure Source [Right Arm] Automatic Cuff Blood Pressure Position [Right Arm] Sitting 02 Sat by Pulse Oximetry 99 Oxygen Delivery Method Room Air - Lab Data Lab results reviewed: Yes: I reviewed the patient's lab results. Lab Results 09/26/21 12:50: Group A Strep Rapid Negative Orders (Tests/Meds): ORDERS Category Date Time Status Strep Screen Confirmation Stat Micro 09/26/21 12:50 Received [facility] [place] HPI - General Stated complaint: sore throat, ear pain Time Seen by Provider: 09/26/21 12:48 Mode of Arrival: Ambulatory Source of Information: Patient Limitations: No Limitations Description of Symptoms (Recalled from Triage Doc. by RN): ear ache. sore throat HEENT Symptoms (Recalled from RN notes): Yes Resp Symptoms (Recalled from RN notes): Yes Skin Symptoms (Recalled from RN notes): No MS Symptoms (Recalled from RN notes): No Functional Status (Recalled from RN notes): yes - History of Present Illness Provider Complaint: Patient state that she had COVID about 10 days ago but she has been having ear ache and sore throat State that her throat feels raw and she was worried that she may have strep throat State that she has been taken her antibiotics - Related Data Home Medications Medication Instructions Recorded Confirmed baclofen 10 mg tablet mg PO 04/17/20 09/11/21 blood sugar diagnostic See Rx Instructions .ROUTE 11/27/20 09/11/21 .MEDSUPPLY #10 each blood-glucose meter See Rx Instructions .ROUTE 11/27/20 09/11/21 .MEDSUPPLY #1 each lancets 28 gauge See Rx Instructions .ROUTE 11/27/20 09/09/21 .MEDSUPPLY #100 each gabapentin 600 mg tablet 600 mg PO TID tab 08/05/21 09/11/21 hydrocodone 10 mg-acetaminophen 1 tab PO TID-QID PRN tab 08/05/21 09/11/21 325 mg tablet insulin pump cartridge See Rx Instructions .ROUTE 08/30/21 09/11/21 .MEDSUPPLY #5 each Previous Rx's Medication Instructions Recorded cholecalciferol (vitamin D3) 125 5,000 unit PO DAILY #90 cap 05/31/18 mcg (5,000 unit) capsule blood glucose test strips with 0 1000units .ROUTE .MEDSUPPLY #100 04/07/19 disposable meter kit each flash glucose scanning reader See Rx Instructions MISCELLANE 08/05/21 .MEDSUPPLY #1 each flash glucose sensor See Rx Instructions .ROUTE 08/05/21 .MEDSUPPLY #1 each fluconazole 100 mg tablet 100 mg PO ASHLEY
[2021-09-26 13:16] LABS: Strep Scrn Group A (Rapid) Negative (Negative)
[2021-09-26 13:22] VITALS: BP 111/75; PULSE 95; RESP 18; TEMP 36.8; O2SAT 99
== END 2021-09-26 13:23 | disposition home or self-care (01) ==
PROVIDERS: Emergency Provider Nurse Practitioner; PCP Nurse Practitioner Family
DX: R07.0 Pain in throat (principal); E11.40 Type 2 diabetes mellitus with diabetic neuropathy, unspecified; E78.5 Hyperlipidemia, unspecified; K21.9 Gastro-esophageal reflux disease without esophagitis
CPT/HCPCS: 87430; 99202; G0463

== ENCOUNTER → 2021-10-14 14:34 | Outpatient (POV) | payer BC, SELFPAY | PROVIDERS: Visit Provider Internal Medicine Nephrology | DX: Z00.00 Encounter for general adult medical examination without abnormal findings (principal) ==

== ENCOUNTER 2021-10-24 14:33 | Emergency (ER) | payer BC, SELFPAY ==
[2021-10-24 14:54] VITALS: BP 115/74; PULSE 102; RESP 21; TEMP 36.7; O2SAT 99; BMI 42.6
[2021-10-24 15:03] LABS: UTC Strep Screen (Rapid) Negative (Negative)
--- NOTE | 2021-10-24 15:08 | HMH.EDUTC ---
[facility] [place] Disposition Clinical Impression: Bronchitis Disposition: Home, Self-Care Condition on Discharge: Good Instructions: Sinusitis, DI for Sinusitis Additional Instructions: *Monitor Temp, Over the counter Motrin or Tylenol as directed/as needed Tylenol every 4 hours and Motrin every 6 hours (as long as your family doctor has told you that you can take it) for fever or pain. and straight to ER if unable to lower temp less than 101.0 after medication given *Warm salt water gargles may help to soothe the throat *Throat Lozenges *Warm fluids like tea with honey may help to soothe the throat *Sleep elevated *Humidifier/Vaporizer Your throat swab was sent for culture. Those results are typically sent to your primary care. Be sure to follow up in 2-3 days with your family doctor/primary care physician if no improvement so they can review those result and treat if necessary. If you don?t have a primary care doctor, I recommend you get one but in the mean time, you will have to return to a walk in clinic Follow up IMMEDIATELY for new or worsening symptoms or no Noticeable improvement over the next 48-72 hours. 911 for difficulty breathing or swallowing Prescriptions: Benzonatate [Benzonatate 100mg cap] 100 mg PO Q8HP PRN #15 cap PRN Reason: Cough Transmission Status: Pending to [facility] Azithromycin [Z-Faisal 250mg Tab] 250 mg PO DIRECTED #6 tab Transmission Status: Pending to [facility] Referrals: Araceli Mendez APRN [Primary Care Provider] - As needed Medical Decision Making - Scot Inquiry Pt receiving controlled substance: No Scot was queried for this patient: No Vital Signs: 10/24/21 14:54 Temperature 98.0 F Temperature Source Oral Pulse Rate [Right Radial] 102 H Respiratory Rate 21 Blood Pressure [Right Arm] 115/74 Blood Pressure Mean [Right Arm] 87 Blood Pressure Source [Right Arm] Automatic Cuff Blood Pressure Position [Right Arm] Sitting 02 Sat by Pulse Oximetry 99 Oxygen Delivery Method Room Air - Lab Data Lab results reviewed: Yes: I reviewed the patient's lab results. Lab Results 10/24/21 14:59: Strep Scn Rapid Clinic Negative Orders (Tests/Meds): ORDERS Category Date Time Status Strep Screen Confirmation Stat Micro 10/24/21 14:59 Received Medical Decision Narrative: Patient states that she has taken azithromycin in the past without complications or reactions [facility] [place] HPI - General Stated complaint: sore throat, cough, runny nose Time Seen by Provider: 10/24/21 15:08 Mode of Arrival: Ambulatory Source of Information: Patient Limitations: No Limitations Description of Symptoms (Recalled from Triage Doc. by RN): C/O sore throat, runny nose, earache, cough HEENT Symptoms (Recalled from RN notes): Yes (sore throat, runny nose, earache) Resp Symptoms (Recalled from RN notes): Yes (cough) Skin Symptoms (Recalled from RN notes): No MS Symptoms (Recalled from RN notes): No Functional Status (Recalled from RN notes): n/a - History of Present Illness Provider Complaint: Patient states that she has been having bilateral earache, sore throat, and runny nose State that she noticed this morning she was barely able to talk States that son has been sick too States that she was worried she may have an ear infection or strep throat - Related Data Home Medications Medication Instructions Recorded Confirmed baclofen 10 mg tablet mg PO 04/17/20 09/11/21 blood sugar diagnostic See Rx Instructions .ROUTE 11/27/20 09/11/21 .MEDSUPPLY #10 each blood-glucose meter See Rx Instructions .ROUTE 11/27/20 09/11/21 .MEDSUPPLY #1 each lancets 28 gauge See Rx Instructions .ROUTE 11/27/20 09/09/21 .MEDSUPPLY #100 each gabapentin 600 mg tablet 600 mg PO TID tab 08/05/21 09/11/21 hydrocodone 10 mg-acetaminophen 1 tab PO TID-QID PRN tab 08/05/21 09/11/21 325 mg tablet insulin pump cartridge See Rx Instructions .ROUTE 08/30/21 09/11/21
[2021-10-24 15:23] VITALS: BP 115/74; PULSE 102; RESP 21; TEMP 36.7; O2SAT 99
== END 2021-10-24 15:31 | disposition home or self-care (01) ==
PROVIDERS: Emergency Provider Nurse Practitioner; PCP Nurse Practitioner Family
DX: J20.9 Acute bronchitis, unspecified (principal); K21.9 Gastro-esophageal reflux disease without esophagitis; E11.9 Type 2 diabetes mellitus without complications
CPT/HCPCS: 87880; 99202; G0463

== ENCOUNTER → 2022-01-07 07:57 | Outpatient (CLI) | payer BC, SELFPAY ==
[2022-01-07 08:24] LABS: Basophils # 0.1 K/mm3 (0-0.2); Basophils % 1.2 % (0.1-2.0); Eosinophils # 0.2 K/mm3 (0.0-0.4); Hematocrit 41.8 % (37.0-47.0); Hemoglobin 13.8 g/dL (12.2-16.2); Lymphocytes # 1.6 K/mm3 (0.7-4.5); Lymphocytes % 21.8 % (10-50); Mean Corpuscular Hemoglobin 30.8 pg (27.0-31.2); Mean Corpuscular Volume 93.3 fl (81-99); Mean Platelet Volume 8.4 fl (7.4-10.4); Monocytes # 0.3 K/mm3 (0.1-1.0); Monocytes % 4.3 % (1.7-9.3); Neutrophils # 5.2 K/mm3 (1.8-7.8); Neutrophils % 69.7 % (37.0-80.0); Platelet Count 254 K/mm3 (142-424); Red Blood Count 4.48 M/mm3 (4.20-5.40); White Blood Count 7.4 K/mm3 (4.8-10.8)
[2022-01-07 08:33] LABS: Hemoglobin A1C 7.9 % (4.0-6.0)
[2022-01-07 08:49] LABS: Alanine Aminotransferase 35 U/L (12-78); Albumin Level 3.8 g/dl (3.5-5.0); Albumin/Globulin Ratio 1.6 (1.1-1.8); Alkaline Phosphatase 65 U/L (38-126); Aspartate Amino Transferase 44 U/L (14-36); Bilirubin,Total 0.4 mg/dl (0.2-1.3); Blood Urea Nitrogen 8 mg/dl (7-17); Calcium 9.2 mg/dl (8.4-10.2); Carbon Dioxide 31 mmol/L (22.0-30.0); Chloride 103 mmol/L (98-107); Chol/HDL Ratio 8.1 (1-3.5); Cholesterol 252 mg/dl (140-200); Estimated Glomerular Filt Rate 133 ml/min (>60); GFR (African American) 161 ML/MIN (>60); Globulin 2.4 g/dL (1.3-3.2); Glucose 154 mg/dl (74-100); HDL Cholesterol 31 mg/dl (40-60); Sodium 139 mmol/L (136-145); Total Protein,Serum 6.2 g/dl (6.3-8.2)
[2022-01-07 08:50] LABS: Triglycerides 419 mg/dl (30-150)
[2022-01-07 08:59] LABS: Direct LDL Cholesterol 143.75 mg/dL (100-129)
[2022-01-07 09:04] LABS: T4 (Thyroxine) 10.5 ug/dl (5.53-11.0)
[2022-01-07 09:18] LABS: Thyroid Stimulating Hormone 2.45 uIU/mL (0.465-4.68)
== END ==
PROVIDERS: Visit Provider Nurse Practitioner Family
DX: E11.69 Type 2 diabetes mellitus with other specified complication (principal); Z79.4 Long term (current) use of insulin
CPT/HCPCS: 36415; 80053; 80061; 83036; 84436; 84443; 85025

== ENCOUNTER 2022-02-07 10:44 | Emergency (ER) | payer BC, SELFPAY ==
[2022-02-07 11:00] VITALS: BP 141/78; PULSE 86; RESP 19; TEMP 36.8; O2SAT 98; BMI 41.3
--- NOTE | 2022-02-07 11:07 | HMH.EDUTC ---
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 Follow up with your regular doctor. Take the antibiotics as directed and apply the topical antibiotics as directed. Apply warm wet compresses to the affected area three or four times per day. GO TO THE ER FOR ANY WORSENING SYMPTOMS Drink plenty of fluids. Take tylenol or ibuprofen for pain or fever. Take the medications as directed. Follow up with your regular doctor. GO TO THE ER FOR ANY WORSENING SYMPTOMS I sent a swab of the drainage to the micro lab. They will culture it. This will tell us bacteria is causing your infection and which antibiotics will treat it best. This test takes 3 days to complete. Usually one of the antibiotics can be stopped after the culture results are back. You should follow up with your primary care physician in 3 days to review this and have the medications adjusted. Prescriptions: Sulfamethoxazole/Trimethoprim [Bactrim DS tablet] 1 each PO BID 10 Days #20 tab Transmission Status: Received by [facility] Mupirocin [Bactroban 2% Ointment 22gm tube] 1 applicatio TP TID 7 Days #1 gm Transmission Status: Received by [facility] cephALEXin [cephALEXin 500mg capsule] 500 mg PO Q6H 10 Days #40 cap Transmission Status: Received by [facility] Referrals: Araceli Mendez APRN [Primary Care Provider] - Forms: Work/School Release Time of Disposition: 11:23 Medical Decision Making - Medical Records Medical records reviewed: No: I reviewed the patient's medical records. - Scot Inquiry Pt receiving controlled substance: No Vital Signs: 02/07/22 11:00 02/07/22 11:34 Temperature 98.2 F 98.2 F Temperature Source Oral Pulse Rate 86 Pulse Rate [Right Brachial] 86 Respiratory Rate 19 19 Blood Pressure 141/78 H Blood Pressure [Right Arm] 141/78 H Blood Pressure Mean [Right Arm] 99 Blood Pressure Source [Right Arm] Automatic Cuff Blood Pressure Position [Right Arm] Sitting 02 Sat by Pulse Oximetry 98 Oxygen Delivery Method Room Air Orders (Tests/Meds): ED MEDICATIONS Discontinued Medications Generic Name Dose Route Start Last Admin Trade Name Shayy PRN Reason Stop Dose Admin Ceftriaxone Sodium 1 gm 02/07/22 11:16 02/07/22 11:25 Ceftriaxone 1gm Vial IM 02/07/22 11:17 1 gm ONCE ONE Administration Lidocaine HCl 0 ml 02/07/22 11:16 02/07/22 11:25 Lidocaine 1% 5ml Pf Vial IM 02/07/22 11:17 2 ml ONCE ONE Administration ORDERS Category Date Time Status Wound Culture and Gram Stain Stat Micro 02/07/22 11:15 Received [facility] [place] HPI - General Stated complaint: inf spot on belly, cough Time Seen by Provider: 02/07/22 11:17 - History of Present Illness Provider Complaint: She states that she has had a red warm area on her abdomen for the past 12 days. She is a diabetic and she wears a continious blood glucose monitor. This red area is an old insertion site. She is also having a nonproductive cough and chest congestion. She refuses a covid-19 test today. - Related Data Home Medications Medication Instructions Recorded Confirmed baclofen 10 mg tablet mg PO 04/17/20 12/11/21 blood sugar diagnostic See Rx Instructions .ROUTE 11/27/20 12/11/21 .MEDSUPPLY #10 each blood-glucose meter S
[2022-02-07 11:34] VITALS: BP 141/78; PULSE 86; RESP 19; TEMP 36.8; O2SAT 98
== END 2022-02-07 11:43 | disposition home or self-care (01) ==
PROVIDERS: Emergency Provider Nurse Practitioner Family; PCP Nurse Practitioner Family
DX: L03.311 Cellulitis of abdominal wall (principal); J40 Bronchitis, not specified as acute or chronic; E11.69 Type 2 diabetes mellitus with other specified complication
CPT/HCPCS: 87070; 87077; 87186; 87205; 90471; 99212; G0463; J0696

== ENCOUNTER 2022-03-26 16:57 | Emergency (ER) | payer BC, SELFPAY ==
--- NOTE | 2022-03-26 17:08 | XR_ITS ---
PROCEDURE INFORMATION: Exam: XR Right Foot Exam date and time: 03/26/2022 5:30 PM Age: 46 years old Clinical indication: Pain; Foot; Right; Additional info: Injury to second toe TECHNIQUE: Imaging protocol: Radiologic exam of the Right foot. Views: 3 or more views. COMPARISON: CR XR FOOT RT MIN 3V 10/11/2019 3:31 PM FINDINGS: Bones/joints: Normal. Soft tissues: Normal. IMPRESSION: No acute findings.
[2022-03-26 17:28] VITALS: BP 141/86; PULSE 87; RESP 18; TEMP 36.6; O2SAT 98; BMI 43.5
--- NOTE | 2022-03-26 17:37 | HMH.EDUTC ---
[facility] [place]: Fracture, toe Qualifiers: Encounter type: initial encounter Toe: lesser toe Fracture type: closed Phalanx: middle Fracture alignment: nondisplaced Laterality: right Qualified Code(s): S92.524A - Nondisplaced fracture of middle phalanx of right lesser toe(s), initial encounter for closed fracture Disposition: Home, Self-Care Condition on Discharge: Good Instructions: How To Perform RICE (Rest, Ice, Compress, Elevate) Additional Instructions: *weight bearing as tolerated *RICE, Rest the extremity, Ice 15-20 minutes 3-4 times daily, Compress- wear the hugo wrap as discussed as much as possible to help reduce swelling and pain, Elevate the extremity when at rest *Nathaniel tape and post op shoe is for support and help control swelling, use it except in the shower. Be sure that is not to tight but not to loose either *Elevate when resting *Ibuprofen 600-800mg every 6-8 hours as needed for pain an inflammation. If need something more can take Tylenol in between doses of Ibuprofen to help Immediately follow up with your family doctor for new or worsening of symptoms, or no noticeable improvement over the next 3-5 days Prescriptions: Fluticasone Propionate [Flonase 50mcg nasal spray 16gm] 1 spr NS DAILY #1 each Transmission Status: Received by [facility] Referrals: Vipul Velazquez MD [Primary Care Provider] - Anny Vegas DPM [Staff Physician] - Romulo Duran JR, MD [Physician] - Time of Disposition: 17:55 Medical Decision Making - Scot Inquiry Pt receiving controlled substance: No Scot was queried for this patient: No Vital Signs: 03/26/22 17:28 03/26/22 18:01 Temperature 97.8 F 97.8 F Temperature Source Oral Pulse Rate 87 Pulse Rate [Left] 87 Respiratory Rate 18 18 Blood Pressure 141/86 H Blood Pressure [Right Arm] 141/86 H Blood Pressure Mean [Right Arm] 104 02 Sat by Pulse Oximetry 98 - Radiology Data #1 Image(s): Foot/Toes Image Reviewed: Yes I reviewed the patient's radiology image Fracture middle phalange 2nd toe [facility] [place] General Stated complaint: AO 03/26/22 Right 2nd toe injury, ? ear infection Time Seen by Provider: 03/26/22 17:37 Mode of Arrival: Ambulatory Source of Information: Patient Limitations: No Limitations Description of Symptoms (Recalled from Triage Doc. by RN): patient comes in with complaints of right foot toe pain. patient states that she kicked something while walking in the dark this am. patient also states that she has had an earache for the past two days in her right ear. HEENT Symptoms (Recalled from RN notes): No Resp Symptoms (Recalled from RN notes): No Skin Symptoms (Recalled from RN notes): No MS Symptoms (Recalled from RN notes): Yes Functional Status (Recalled from RN notes): n/a - History of Present Illness Provider Complaint: Patient states that she has been havign pain in her left ear for about 2 days State that also as she was walking through her house this morning going to the bathroom she accidently kicked something and has been having pain/swelling/and bruising to her right second toe - Related Data Home Medications Medication Instructions Recorded Confirmed baclofen 10 mg tablet mg PO 04/17/20 12/11/21 blood sugar diagnostic See Rx Instructions .ROUTE 11/27/20 12/11/21 .MEDSUPPLY #10 each blood-glucose meter See Rx Instructions .ROUTE 11/27/20 12/11/21 .MEDSUPPLY #1 each lancets 28 gauge See Rx Instructions .ROUTE 11/27/20 12/11/21 .MEDSUPPLY #100 each gabapentin 600 mg tablet 600 mg PO TID tab 08/05/21 12/11/21 hydrocodone 10 mg-acetaminophen 1 tab PO TID-QID PRN tab 08/05/21 12/11/21 325 mg tablet Previous Rx's Medication Instructions Recorded cholecalciferol (vitamin D3) 125 5,000 unit PO DAILY #90 cap 05/31/18 mcg (5,000 unit) capsule blood glucose test strips with 0 1000units .ROUTE .MEDSUPPLY #100 04/07/19 disposable meter kit each fluticasone propi
[2022-03-26 18:01] VITALS: BP 141/86; PULSE 87; RESP 18; TEMP 36.6
== END 2022-03-26 18:02 | disposition home or self-care (01) ==
PROVIDERS: Emergency Provider Nurse Practitioner; PCP Emergency Medicine
DX: S92.524A Nondisplaced fracture of middle phalanx of right lesser toe(s), initial encounter for closed fracture (principal)
CPT/HCPCS: 73630; 99212; G0463

== ENCOUNTER 2022-05-09 09:57 | Emergency (ER) | payer BC, SELFPAY ==
[2022-05-09 10:18] VITALS: BP 154/77; PULSE 85; RESP 19; TEMP 36.7; O2SAT 96; BMI 43.0
[2022-05-09 10:26] LABS: UTC Strep Screen (Rapid) Negative (Negative)
--- NOTE | 2022-05-09 10:32 | EXP.UTC ---
Discharge Plan Disposition Patient Disposition: Home, Self-Care Condition: Good Prescriptions Prescriptions: New prednisone [prednisone] 20 mg tablet 20 mg PO BID 5 Days Qty: 10 0RF amoxicillin-pot clavulanate 875-125 mg Tablet 1 tab PO Q12H Qty: 20 0RF dextromethorphan-guaifenesin [Mucinex DM] 60-1,200 mg tablet extended release 12 hr 1 tab PO BID PRN (Reason: cough) Qty: 20 0RF No Action baclofen 10 mg tablet PO gabapentin 600 mg tablet 600 mg PO TID (DME) blood-glucose meter Kit See Rx Instructions .ROUTE .MEDSUPPLY Qty: 1 Rx Instructions: As directed (DME) lancets 28 gauge misc See Rx Instructions .ROUTE .MEDSUPPLY Qty: 100 Rx Instructions: As directed (DME) blood sugar diagnostic Strip See Rx Instructions .ROUTE .MEDSUPPLY Qty: 10 Rx Instructions: As directed hydrocodone-acetaminophen 10-325 mg tablet 1 tab PO TID-QID PRN fluticasone propionate 50 mcg/actuation spray,suspension 2 spray intranasal QDAY Qty: 16 0RF Rx Instructions: administer into each nostril dulaglutide [Trulicity] 0.75 mg/0.5 mL pen injector 0RF (DME) Dexcom Area Counselor Misc See Rx Instructions .ROUTE .MEDSUPPLY Qty: 1 0RF Rx Instructions: As directed prednisone 20 mg tablet 20 mg PO BID Qty: 10 0RF Rx Instructions: administer with food or milk levofloxacin 500 mg tablet 500 mg PO DAILY 5 Days Qty: 5 0RF sertraline [Zoloft] 50 mg tablet 50 mg PO DAILY Qty: 90 0RF cholecalciferol (vitamin D3) 5,000 unit capsule 5,000 unit PO DAILY Qty: 90 0RF (DME) blood glucose strip-disp meter Kit 0 1000units .Route .MEDSUPPLY Qty: 100 0RF Rx Instructions: As directed Gvoke HypoPen 1-Pack 1 mg/0.2 mL auto-injector 1 mg SQ ONCE Qty: 0.2 0RF Rx Instructions: use if glucose less than 50 and unable to eat or drink loratadine 10 mg tablet 10 mg PO DAILY Qty: 90 3RF omeprazole 20 mg tablet,delayed release (DR/EC) 20 mg PO DAILY Qty: 90 3RF ferrous sulfate 325 mg (65 mg iron) tablet 325 mg PO BID Qty: 90 3RF (DME) Dexcom G6 Sensor Device See Rx Instructions .ROUTE .MEDSUPPLY Qty: 3 4RF Rx Instructions: As directed (DME) insulin pump cartridge Cartridge See Rx Instructions .ROUTE .MEDSUPPLY Qty: 5 7RF Rx Instructions: As directed (DME) Dexcom G6 Transmitter Device See Rx Instructions .ROUTE .COMPLEX Qty: 1 10RF Dose Instruction: USE DIRECTED Rx Instructions: USE DIRECTED metformin 1,000 mg tablet See Rx Instructions .ROUTE .COMPLEX Qty: 120 0RF Dose Instruction: TAKE ONE TABLET BY MOUTH 2 TIMES A DAY Rx Instructions: TAKE ONE TABLET BY MOUTH 2 TIMES A DAY insulin lispro [Humalog U-100 Insulin] 100 unit/mL solution See Rx Instructions .ROUTE .COMPLEX Qty: 20 3RF Dose Instruction: USE DIRECTED PER SLIDING SCALE (MAX OF 80 UNITS PER DAY) Rx Instructions: USE DIRECTED PER SLIDING SCALE (MAX OF 80 UNITS PER DAY) Trulicity 0.75 mg/0.5 mL pen injector See Rx Instructions .ROUTE .COMPLEX Qty: 2 3RF Dose Instruction: INJECT 0.75 MG (0.5 ML) SUBCUTANEOUSLY ONCE A WEEK Rx Instructions: INJECT 0.75 MG (0.5 ML) SUBCUTANEOUSLY ONCE A WEEK meloxicam 15 mg tablet See Rx Instructions .ROUTE .COMPLEX Qty: 30 2RF Dose Instruction: TAKE ONE TABLET BY MOUTH ONCE A DAY NEEDED FOR PAIN Rx Instructions: TAKE ONE TABLET BY MOUTH ONCE A DAY NEEDED FOR PAIN lisinopril 5 mg tablet See Rx Instructions .ROUTE .COMPLEX Qty: 30 2RF Dose Instruction: TAKE ONE TABLET BY MOUTH ONCE A DAY Rx Instructions: TAKE ONE TABLET BY MOUTH ONCE A DAY albuterol sulfate 8.5 GM HFA aerosol inhaler 2 puffs IH Q6HP PRN (Reason: Shortness Of Breath) 30 Days Qty: 1 5RF Lactobac comb [id number] 1 EACH capsule 1 each PO BID 30 Days Qty: 60 0RF flut
[2022-05-09 10:57] VITALS: BP 154/77; PULSE 85; RESP 19; TEMP 36.7
== END 2022-05-09 10:58 | disposition home or self-care (01) ==
PROVIDERS: Emergency Provider Physician Assistant; PCP Emergency Medicine
DX: J02.9 Acute pharyngitis, unspecified (principal); H66.91 Otitis media, unspecified, right ear; R09.81 Nasal congestion; R51.9 Headache, unspecified; R53.82 Chronic fatigue, unspecified; F32.A Depression, unspecified; Z79.1 Long term (current) use of non-steroidal anti-inflammatories (NSAID); Z79.4 Long term (current) use of insulin; Z79.51 Long term (current) use of inhaled steroids; Z79.52 Long term (current) use of systemic steroids; Z79.899 Other long term (current) drug therapy; Z91.030 Bee allergy status; Z91.041 Radiographic dye allergy status; Z91.011 Allergy to milk products; Z91.048 Other nonmedicinal substance allergy status
CPT/HCPCS: 87880; 99213; G0463

== ENCOUNTER → 2022-05-10 11:48 | Outpatient (CLI) | payer BC, SELFPAY ==
[2022-05-11 08:47] LABS: Cancer Antigen (CA) 125 7.7 U/mL (0.0-38.1)
== END ==
PROVIDERS: PCP Emergency Medicine; Visit Provider Nurse Practitioner Women's Health
DX: N83.8 Other noninflammatory disorders of ovary, fallopian tube and broad ligament (principal)
CPT/HCPCS: 36415; 86316

== ENCOUNTER 2022-07-12 13:32 | Emergency (ER) | payer BC, SELFPAY ==
[2022-07-12 15:05] VITALS: BP 147/92; PULSE 87; RESP 19; TEMP 36.7; O2SAT 97; BMI 43.9
--- NOTE | 2022-07-12 15:25 | EXP.UTC ---
Discharge Plan Disposition Patient Disposition: Home, Self-Care Condition: Good Prescriptions Prescriptions: New amoxicillin-pot clavulanate 875-125 mg Tablet 1 tab PO Q12H Qty: 20 0RF No Action baclofen 10 mg tablet PO gabapentin 600 mg tablet 600 mg PO TID ([facility] [place] blood-glucose meter Kit See Rx Instructions .ROUTE .MEDSUPPLY Qty: 1 Rx Instructions: As directed ([facility] [place] lancets 28 gauge misc See Rx Instructions .ROUTE .MEDSUPPLY Qty: 100 Rx Instructions: As directed ([facility] [place] blood sugar diagnostic Strip See Rx Instructions .ROUTE .MEDSUPPLY Qty: 10 Rx Instructions: As directed hydrocodone-acetaminophen 10-325 mg tablet 1 tab PO TID-QID PRN dulaglutide [Trulicity] 0.75 mg/0.5 mL pen injector 0RF ([facility] [place]) Dexcom Scraper Loader Operator Misc See Rx Instructions .ROUTE .MEDSUPPLY Qty: 1 0RF Rx Instructions: As directed sertraline [Zoloft] 50 mg tablet 50 mg PO DAILY Qty: 90 0RF ([facility] [place] blood glucose strip-disp meter Kit 0 1000units .Route .MEDSUPPLY Qty: 100 0RF Rx Instructions: As directed Gvoke HypoPen 1-Pack 1 mg/0.2 mL auto-injector 1 mg SQ ONCE Qty: 0.2 0RF Rx Instructions: use if glucose less than 50 and unable to eat or drink loratadine 10 mg tablet 10 mg PO DAILY Qty: 90 3RF omeprazole 20 mg tablet,delayed release (DR/EC) 20 mg PO DAILY Qty: 90 3RF ferrous sulfate 325 mg (65 mg iron) tablet 325 mg PO BID Qty: 90 3RF (DME) Dexcom G6 Sensor Device See Rx Instructions .ROUTE .MEDSUPPLY Qty: 3 4RF Rx Instructions: As directed ([facility] [place]) insulin pump cartridge Cartridge See Rx Instructions .ROUTE .MEDSUPPLY Qty: 5 7RF Rx Instructions: As directed ([facility] [place]) Dexcom G6 Transmitter Device See Rx Instructions .ROUTE .COMPLEX Qty: 1 10RF Dose Instruction: USE DIRECTED Rx Instructions: USE DIRECTED metformin 1,000 mg tablet See Rx Instructions .ROUTE .COMPLEX Qty: 60 3RF Dose Instruction: TAKE ONE TABLET BY MOUTH 2 TIMES A DAY Rx Instructions: TAKE ONE TABLET BY MOUTH 2 TIMES A DAY fluticasone propionate 50 mcg/actuation spray,suspension 1 spray NS DAILY Qty: 1 0RF Rx Instructions: one spray in each nostril daily Lactobac comb [id number] 300-250 million cell-mg capsule 1 cap PO BID 30 Days Qty: 60 0RF lisinopril 5 mg tablet See Rx Instructions .ROUTE .COMPLEX Qty: 30 2RF Dose Instruction: TAKE ONE TABLET BY MOUTH ONCE A DAY Rx Instructions: TAKE ONE TABLET BY MOUTH ONCE A DAY meloxicam 15 mg tablet See Rx Instructions .ROUTE .COMPLEX Qty: 30 2RF Dose Instruction: TAKE ONE TABLET BY MOUTH ONCE A DAY NEEDED FOR PAIN Rx Instructions: TAKE ONE TABLET BY MOUTH ONCE A DAY NEEDED FOR PAIN Trulicity 0.75 mg/0.5 mL pen injector See Rx Instructions .ROUTE .COMPLEX Qty: 2 2RF Dose Instruction: INJECT 0.75 MG (0.5 ML) SUBCUTANEOUSLY ONCE A WEEK Rx Instructions: INJECT 0.75 MG (0.5 ML) SUBCUTANEOUSLY ONCE A WEEK insulin lispro [Humalog U-100 Insulin] 100 unit/mL solution See Rx Instructions .ROUTE .COMPLEX Qty: 20 3RF Dose Instruction: USE DIRECTED PER SLIDING SCALE (MAX OF 80 UNITS PER DAY) Rx Instructions: USE DIRECTED PER SLIDING SCALE (MAX OF 80 UNITS PER DAY) albuterol sulfate 8.5 GM HFA aerosol inhaler 2 puffs inhalation Q6HP PRN (Reason: Shortness Of Breath) 30 Days Qty: 1 5RF Referrals Follow up/Referrals: Vipul Velazquez MD [Primary Care Provider] - See instructions Activity Restrictions/Add. Instructions Additional Instructions/Restrictions: *Monitor Temp, Over the counter Motrin or Tylenol as directed/as needed Tylenol every 4 hours and Motrin every 6 hours (as long as your family doctor has told you that you can take it) for fever or pain. and straight to ER if unable to lower temp less than 101.0 after medication given
[2022-07-12 15:29] LABS: UTC Influenza A Antigen Negative (Negative); UTC Influenza B Antigen Negative (Negative)
[2022-07-12 15:59] VITALS: BP 147/92; PULSE 87; RESP 19; TEMP 36.7; O2SAT 97
== END 2022-07-12 16:02 | disposition home or self-care (01) ==
PROVIDERS: Emergency Provider Nurse Practitioner; PCP Emergency Medicine
DX: J32.9 Chronic sinusitis, unspecified (principal)
CPT/HCPCS: 87804; 99212; G0463

== ENCOUNTER 2022-08-08 18:18 | Emergency (ER) | payer BC, SELFPAY ==
[2022-08-08 20:01] LABS: UTC Strep Screen (Rapid) Negative (Negative)
[2022-08-08 20:04] VITALS: BP 151/81; PULSE 82; RESP 16; TEMP 36.6; O2SAT 98; BMI 43.8
--- NOTE | 2022-08-08 20:12 | EXP.UTC ---
Discharge Plan Disposition Patient Disposition: Home, Self-Care Condition: Good Prescriptions Prescriptions: New benzonatate [benzonatate] 100 mg capsule 100 mg PO TIDP PRN (Reason: Cough) Qty: 30 0RF ondansetron 4 mg Tablet,Disintegrating 4 mg PO Q8H PRN (Reason: Nausea) Qty: 20 0RF No Action baclofen 10 mg tablet PO gabapentin 600 mg tablet 600 mg PO TID (DME) blood-glucose meter Kit See Rx Instructions .ROUTE .MEDSUPPLY Qty: 1 Rx Instructions: As directed (DME) lancets 28 gauge misc See Rx Instructions .ROUTE .MEDSUPPLY Qty: 100 Rx Instructions: As directed (DME) blood sugar diagnostic Strip See Rx Instructions .ROUTE .MEDSUPPLY Qty: 10 Rx Instructions: As directed hydrocodone-acetaminophen 10-325 mg tablet 1 tab PO TID-QID PRN dulaglutide [Trulicity] 0.75 mg/0.5 mL pen injector 0RF (DME) Dexcom Academic Services Professional Misc See Rx Instructions .ROUTE .MEDSUPPLY Qty: 1 0RF Rx Instructions: As directed sertraline [Zoloft] 50 mg tablet 50 mg PO DAILY Qty: 90 0RF (DME) blood glucose strip-disp meter Kit 0 1000units .Route .MEDSUPPLY Qty: 100 0RF Rx Instructions: As directed Gvoke HypoPen 1-Pack 1 mg/0.2 mL auto-injector 1 mg SQ ONCE Qty: 0.2 0RF Rx Instructions: use if glucose less than 50 and unable to eat or drink loratadine 10 mg tablet 10 mg PO DAILY Qty: 90 3RF omeprazole 20 mg tablet,delayed release (DR/EC) 20 mg PO DAILY Qty: 90 3RF ferrous sulfate 325 mg (65 mg iron) tablet 325 mg PO BID Qty: 90 3RF (DME) insulin pump cartridge Cartridge See Rx Instructions .ROUTE .MEDSUPPLY Qty: 5 7RF Rx Instructions: As directed [place] [place] Dexcom G6 Transmitter Device See Rx Instructions .ROUTE .COMPLEX Qty: 1 10RF Dose Instruction: USE DIRECTED Rx Instructions: USE DIRECTED metformin 1,000 mg tablet See Rx Instructions .ROUTE .COMPLEX Qty: 60 3RF Dose Instruction: TAKE ONE TABLET BY MOUTH 2 TIMES A DAY Rx Instructions: TAKE ONE TABLET BY MOUTH 2 TIMES A DAY Lactobac comb [id number] 300-250 million cell-mg capsule 1 cap PO BID 30 Days Qty: 60 0RF lisinopril 5 mg tablet See Rx Instructions .ROUTE .COMPLEX Qty: 30 2RF Dose Instruction: TAKE ONE TABLET BY MOUTH ONCE A DAY Rx Instructions: TAKE ONE TABLET BY MOUTH ONCE A DAY meloxicam 15 mg tablet See Rx Instructions .ROUTE .COMPLEX Qty: 30 2RF Dose Instruction: TAKE ONE TABLET BY MOUTH ONCE A DAY NEEDED FOR PAIN Rx Instructions: TAKE ONE TABLET BY MOUTH ONCE A DAY NEEDED FOR PAIN Trulicity 0.75 mg/0.5 mL pen injector See Rx Instructions .ROUTE .COMPLEX Qty: 2 2RF Dose Instruction: INJECT 0.75 MG (0.5 ML) SUBCUTANEOUSLY ONCE A WEEK Rx Instructions: INJECT 0.75 MG (0.5 ML) SUBCUTANEOUSLY ONCE A WEEK insulin lispro [Humalog U-100 Insulin] 100 unit/mL solution See Rx Instructions .ROUTE .COMPLEX Qty: 20 3RF Dose Instruction: USE DIRECTED PER SLIDING SCALE (MAX OF 80 UNITS PER DAY) Rx Instructions: USE DIRECTED PER SLIDING SCALE (MAX OF 80 UNITS PER DAY) (DME) Dexcom G6 Sensor Device See Rx Instructions .ROUTE .MEDSUPPLY Qty: 3 4RF Rx Instructions: As directed fluticasone propionate 50 mcg/actuation spray,suspension See Rx Instructions .ROUTE .COMPLEX Qty: 16 3RF Dose Instruction: USE 1 SPRAY IN EACH NOSTRIL ONCE A DAY Rx Instructions: USE 1 SPRAY IN EACH NOSTRIL ONCE A DAY albuterol sulfate 8.5 GM HFA aerosol inhaler 2 puffs inhalation Q6HP PRN (Reason: Shortness Of Breath) 30 Days Qty: 1 5RF amoxicillin-pot clavulanate 875-125 mg Tablet 1 tab PO Q12H Qty: 20 0RF benzonatate 100 mg capsule 100 mg PO TID PRN (Reason: cough) Qty: 15 0RF Referrals Follow up/Referrals: Vipul Velazquez MD [Primary Care Provider] - See instructions Activi
[2022-08-08 20:36] LABS: Adenovirus,PCR Not Detected (NotDetected); Bordetella Pertussis Not Detected (NotDetected); Chlamydophila Pneumoniae, PCR Not Detected (NotDetected); Coronavirus 19, PCR Not Detected (NotDetected); Coronavirus 229E Not Detected (NotDetected); Coronavirus NL63 Not Detected (NotDetected); Coronavirus OC43 Not Detected (NotDetected); Coronovirus HKU1,PCR Not Detected (NotDetected); Human Metapneumovirus Not Detected (NotDetected); Influenza A, PCR Not Detected (NotDetected); Influenza AH1, 2009 Not Detected (NotDetected); Influenza AH1, PCR Not Detected (NotDetected); Influenza AH3,PCR Not Detected (NotDetected); Influenza B, PCR Not Detected (NotDetected); Mycoplasma Pneumoniae, PCR Not Detected (NotDetected); Parainfluenza 1, PCR Not Detected (NotDetected); Parainfluenza 2, PCR Not Detected (NotDetected); Parainfluenza 3, PCR Not Detected (NotDetected); Parainfluenza 4, PCR Not Detected (NotDetected); Respiratory Syncytial Virus Not Detected (NotDetected); Rhinovirus/Enterovirus Not Detected (NotDetected)
[2022-08-08 20:46] VITALS: BP 151/81; PULSE 82; RESP 16; TEMP 36.6
== END 2022-08-08 20:51 | disposition home or self-care (01) ==
PROVIDERS: Emergency Provider Nurse Practitioner Family; PCP Emergency Medicine
DX: K52.9 Noninfective gastroenteritis and colitis, unspecified (principal); B34.9 Viral infection, unspecified
CPT/HCPCS: 87581; 87632; 87798; 87880; 99212; C9803; G0463; U0003; U0005

== ENCOUNTER → 2022-09-04 06:48 | Outpatient (CLI) | payer BC, SELFPAY | PROVIDERS: PCP Student in an Organized Health Care Education/Training Program; Visit Provider Student in an Organized Health Care Education/Training Program | DX: J02.9 Acute pharyngitis, unspecified (principal) | CPT/HCPCS: 87070; 87077 ==

== ENCOUNTER → 2022-10-30 13:13 | Outpatient (POV) | payer BC, SELFPAY | PROVIDERS: Visit Provider Internal Medicine Nephrology | DX: Z00.00 Encounter for general adult medical examination without abnormal findings (principal) ==

== ENCOUNTER → 2022-10-30 14:04 | Outpatient (CLI) | payer BC, SELFPAY ==
[2022-10-30 14:19] LABS: Microscopic, Urine URINE MICROSCOPIC (MICROSCOPIC)
[2022-10-30 14:38] LABS: Basophils # 0.1 K/mm3 (0-0.2); Eosinophils # 0.2 K/mm3 (0.0-0.4); Eosinophils % 2.5 % (0.1-12.0); Hematocrit 41.6 % (37.0-47.0); Hemoglobin 13.4 g/dL (12.2-16.2); Lymphocytes # 2.1 K/mm3 (0.7-4.5); Lymphocytes % 24.1 % (10-50); Mean Corpuscular HGB Conc 32.2 g/dL (31.8-35.4); Mean Corpuscular Hemoglobin 29.8 pg (27.0-31.2); Mean Corpuscular Volume 92.6 fl (81-99); Mean Platelet Volume 8.2 fl (7.4-10.4); Monocytes # 0.3 K/mm3 (0.1-1.0); Monocytes % 3.7 % (1.7-9.3); Neutrophils # 5.8 K/mm3 (1.8-7.8); Neutrophils % 68.7 % (37.0-80.0); Platelet Count 257 K/mm3 (142-424); Red Blood Count 4.49 M/mm3 (4.20-5.40); Red Cell Distribution Width 14.2 % (11.5-17.5); White Blood Count 8.5 K/mm3 (4.8-10.8)
[2022-10-30 14:51] LABS: Creatinine,Urine Random 141 mg/dL (Not Estab.)
[2022-10-30 14:55] LABS: Appearance,Urine CLEAR (Clear); Bilirubin,Urine 1+ (Negative); Blood, Urine Negative (Negative); Color,Urine YELLOW (Yellow); Glucose,Urine (UA) Negative (Negative); Ketones,Urine Negative (Negative); Leukocyte Esterase,Urine Negative (Negative); Nitrate,Urine Negative (Negative); PH,Urine 5.5 (5.0-8.5); Protein,Urine 3+ (Negative); Specific Gravity, Urine >= 1.030 (1.005-1.030); Urobilinogen,Urine 0.2 EU/dl (0.2)
[2022-10-30 15:05] LABS: Albumin Level 3.7 g/dl (3.5-5.0); Anion Gap 7.9 mEq/L (5-15); Blood Urea Nitrogen 7 mg/dl (7-17); Calcium 8.7 mg/dl (8.4-10.2); Carbon Dioxide 29 mmol/L (22.0-30.0); Chloride 105 mmol/L (98-107); Estimated Glomerular Filt Rate 133 ml/min (>60); GFR (African American) 161 ML/MIN (>60); Glucose 168 mg/dl (74-100); Phosphorous 4.1 mg/dl (2.5-4.5); Potassium 3.9 mmoL/L (3.5-5.1); Sodium 138 mmol/L (136-145)
[2022-10-30 15:17] LABS: Intact Parathyroid Hormone 25.8 pg/mL (7.5-53.5)
[2022-10-30 15:22] LABS: 25-OH Vitamin D, Total 46.5 ng/mL (30-100); WBC,Urine Occasional #/hpf (0-3)
== END ==
PROVIDERS: PCP Emergency Medicine; Visit Provider Internal Medicine Nephrology
DX: R80.9 Proteinuria, unspecified (principal); E55.9 Vitamin D deficiency, unspecified
CPT/HCPCS: 36415; 80069; 81001; 82306; 82570; 83970; 84155; 85025

== ENCOUNTER → 2023-02-09 12:51 | Outpatient (POV) | payer BC, SELFPAY | PROVIDERS: Visit Provider Internal Medicine Nephrology | DX: Z00.00 Encounter for general adult medical examination without abnormal findings (principal) ==

== ENCOUNTER → 2023-02-09 14:12 | Outpatient (CLI) | payer BC, SELFPAY ==
[2023-02-09 14:18] LABS: Microscopic, Urine URINE MICROSCOPIC (MICROSCOPIC)
[2023-02-09 14:44] LABS: Hematocrit 43.7 % (37.0-47.0); Hemoglobin 14.2 g/dL (12.2-16.2); Mean Corpuscular HGB Conc 32.5 g/dL (31.8-35.4); Mean Corpuscular Hemoglobin 29.4 pg (27.0-31.2); Mean Corpuscular Volume 90.3 fl (81-99); Platelet Count 257 K/mm3 (142-424); Red Blood Count 4.84 M/mm3 (4.20-5.40); Red Cell Distribution Width 14.4 % (11.5-17.5); White Blood Count 9.9 K/mm3 (4.8-10.8)
[2023-02-09 15:27] LABS: Creatinine,Urine Random 64 mg/dL (Not Estab.)
[2023-02-09 15:37] LABS: Anion Gap 15.1 mEq/L (5-15); Blood Urea Nitrogen 9 mg/dl (7-17); Carbon Dioxide 29 mmol/L (22.0-30.0); Chloride 100 mmol/L (98-107); Estimated Glomerular Filt Rate 90 ml/min (>60); GFR (African American) 109 ML/MIN (>60); Glucose 100 mg/dl (74-100); Phosphorous 3.7 mg/dl (2.5-4.5); Potassium 4.1 mmoL/L (3.5-5.1); Sodium 140 mmol/L (136-145)
[2023-02-09 21:05] LABS: Appearance,Urine CLEAR (Clear); Bilirubin,Urine Negative (Negative); Blood, Urine Negative (Negative); Color,Urine YELLOW (Yellow); Glucose,Urine (UA) Negative (Negative); Ketones,Urine Negative (Negative); Leukocyte Esterase,Urine Negative (Negative); Nitrate,Urine Negative (Negative); PH,Urine 5.5 (5.0-8.5); Protein,Urine 2+ (Negative); Urobilinogen,Urine 0.2 EU/dl (0.2)
[2023-02-09 22:06] LABS: Bacteria,Urine Trace /lpf; Triple Phosphate Crystal,Urine 1+ /lpf
== END ==
PROVIDERS: PCP Emergency Medicine; Visit Provider Internal Medicine Nephrology
DX: R80.9 Proteinuria, unspecified (principal)
CPT/HCPCS: 36415; 80069; 81001; 82570; 84155; 85014; 85018; 85048; 85049

== ENCOUNTER → 2023-02-11 23:32 | Outpatient (CLI) | payer BC, SELFPAY | PROVIDERS: PCP Nurse Practitioner Family; Visit Provider Nurse Practitioner Family | DX: R10.9 Unspecified abdominal pain (principal); B96.89 Other specified bacterial agents as the cause of diseases classified elsewhere | CPT/HCPCS: 87086; 87088; 87186 ==

== ENCOUNTER → 2023-02-19 09:05 | Outpatient (CLI) | payer BC, SELFPAY ==
--- NOTE | 2023-02-19 09:05 | US_ITS ---
FINAL REPORT TECHNIQUE: Multiple transverse and longitudinal images CLINICAL HISTORY: RUQ Pain FINDINGS: By history the patient is status post partial cholecystectomy. There is an anechoic structure in the gallbladder fossa which may represent a small residual gallbladder, with a focus of increased echogenicity with posterior acoustical shadowing suggesting a gallstone. The common bile duct measures 0.3 cm in diameter. No biliary ductal dilatation is appreciated. No fluid collections are seen. Limited portions of the right liver are unremarkable. Limited portions of the right kidney are unremarkable. IMPRESSION: Small anechoic structure in the gallbladder fossa that may represent a residual gallbladder as described above. There is an echogenic focus within this structure with posterior acoustical shadowing suggesting a gallstone. No ductal dilatation is present. Reviewed, Interpreted and Dictated by Floyd Buckner MD Transcribed by Kimberly Carbajal Authenticated and [facility]
== END ==
PROVIDERS: PCP Nurse Practitioner Family; Visit Provider Nurse Practitioner Family
DX: R10.11 Right upper quadrant pain (principal)
CPT/HCPCS: 76705

== ENCOUNTER 2023-03-07 15:07 | Emergency (ER) | payer BC, SELFPAY ==
[2023-03-07 15:15] VITALS: BP 159/82; PULSE 81; RESP 18; TEMP 36.7; O2SAT 95; BMI 44.3
--- NOTE | 2023-03-07 15:26 | EXP.UTC ---
Discharge Plan Disposition Patient Disposition: Home, Self-Care Condition: Good Prescriptions Prescriptions: New amoxicillin-pot clavulanate 875-125 mg Tablet 1 tab PO Q12H Qty: 20 0RF No Action baclofen 10 mg tablet PO gabapentin 600 mg tablet 600 mg PO TID ([facility] [place]) blood-glucose meter Kit See Rx Instructions .ROUTE .MEDSUPPLY Qty: 1 Rx Instructions: As directed ([facility] [place]) lancets 28 gauge misc See Rx Instructions .ROUTE .MEDSUPPLY Qty: 100 Rx Instructions: As directed ([facility] [place]) blood sugar diagnostic Strip See Rx Instructions .ROUTE .MEDSUPPLY Qty: 10 Rx Instructions: As directed ([facility] [place]) Dexcom Salesperson Burial Plots Misc See Rx Instructions .ROUTE .MEDSUPPLY Qty: 1 0RF Rx Instructions: As directed Creon 36,000-114,000- 180,000 unit capsule,delayed release(DR/EC) 1 cap PO ondansetron 8 mg tablet,disintegrating 8 mg PO Q12H PRN (Reason: nausea and vomiting) Qty: 20 0RF ([facility] [place]) blood glucose strip-disp meter Kit 0 1000units .Route .MEDSUPPLY Qty: 100 0RF Rx Instructions: As directed Gvoke HypoPen 1-Pack 1 mg/0.2 mL auto-injector 1 mg SQ ONCE Qty: 0.2 0RF Rx Instructions: use if glucose less than 50 and unable to eat or drink ([facility] [place]) insulin pump cartridge Cartridge See Rx Instructions .ROUTE .MEDSUPPLY Qty: 5 7RF Rx Instructions: As directed ([facility] [place]) Dexcom G6 Transmitter Device See Rx Instructions .ROUTE .COMPLEX Qty: 1 10RF Dose Instruction: USE DIRECTED Rx Instructions: USE DIRECTED insulin lispro [Humalog U-100 Insulin] 100 unit/mL solution See Rx Instructions .ROUTE .COMPLEX Qty: 20 3RF Dose Instruction: USE DIRECTED PER SLIDING SCALE (MAX OF 80 UNITS PER DAY) Rx Instructions: USE DIRECTED PER SLIDING SCALE (MAX OF 80 UNITS PER DAY) ([facility] [place]) Dexcom G6 Sensor Device See Rx Instructions .ROUTE .MEDSUPPLY Qty: 3 4RF Rx Instructions: As directed lisinopril 5 mg tablet See Rx Instructions .ROUTE .COMPLEX Qty: 30 2RF Dose Instruction: TAKE ONE TABLET BY MOUTH ONCE A DAY Rx Instructions: TAKE ONE TABLET BY MOUTH ONCE A DAY metformin 1,000 mg tablet See Rx Instructions .ROUTE .COMPLEX Qty: 60 2RF Dose Instruction: TAKE ONE TABLET BY MOUTH 2 TIMES A DAY Rx Instructions: TAKE ONE TABLET BY MOUTH 2 TIMES A DAY loratadine 10 mg tablet See Rx Instructions .ROUTE .COMPLEX Qty: 30 2RF Dose Instruction: TAKE ONE TABLET BY MOUTH ONCE A DAY Rx Instructions: TAKE ONE TABLET BY MOUTH ONCE A DAY ferrous sulfate [FeroSul] 325 mg (65 mg iron) tablet See Rx Instructions .ROUTE .COMPLEX Qty: 60 2RF Dose Instruction: TAKE ONE TABLET BY MOUTH 2 TIMES A DAY Rx Instructions: TAKE ONE TABLET BY MOUTH 2 TIMES A DAY sertraline [Zoloft] 50 mg tablet 50 mg PO DAILY Qty: 90 0RF amoxicillin 500 mg tablet 500 mg PO TID 10 Days Qty: 30 0RF omeprazole 20 mg capsule,delayed release(DR/EC) See Rx Instructions .ROUTE .COMPLEX Qty: 30 2RF Dose Instruction: TAKE ONE CAPSULE BY MOUTH ONCE A DAY Rx Instructions: TAKE ONE CAPSULE BY MOUTH ONCE A DAY albuterol sulfate 8.5 GM HFA aerosol inhaler 2 puffs inhalation Q6HP PRN (Reason: Shortness Of Breath) 30 Days Qty: 1 5RF Referrals Follow up/Referrals: Vipul Velazquez MD [Primary Care Provider] - See instructions Activity Restrictions/Add. Instructions Additional Instructions/Restrictions: Use dental balls as prescribed Take oral antibiotics as prescribed Call and make appointment with Dentist as soon as possible Over the counter Motrin and/or Tylenol for the pain if you can take it Return if needed Straight to ER if any life threatening symptom Clinical Impressions Clinical Impression: Dental abscess Instructions Patient Instructions: Tooth Abscess, Amoxicillin and Clavulanic Acid Discharge ED Provider: Ashley Perez
[2023-03-07 15:32] VITALS: BP 159/82; PULSE 81; RESP 18; TEMP 36.7; O2SAT 95
== END 2023-03-07 15:39 | disposition home or self-care (01) ==
PROVIDERS: Emergency Provider Nurse Practitioner Family; PCP Emergency Medicine
DX: K04.7 Periapical abscess without sinus (principal); E11.9 Type 2 diabetes mellitus without complications; J45.909 Unspecified asthma, uncomplicated; F33.9 Major depressive disorder, recurrent, unspecified; F41.1 Generalized anxiety disorder; Z79.4 Long term (current) use of insulin; Z87.891 Personal history of nicotine dependence
CPT/HCPCS: 99212; 99213; G0463

== ENCOUNTER → 2023-06-04 08:48 | Outpatient (CLI) | payer BC, SELFPAY ==
[2023-06-04 08:59] LABS: Microscopic, Urine URINE MICROSCOPIC (MICROSCOPIC)
[2023-06-04 09:50] LABS: Appearance,Urine CLEAR (Clear); Bilirubin,Urine Negative (Negative); Blood, Urine TRACE-I (Negative); Color,Urine YELLOW (Yellow); Glucose,Urine (UA) Negative (Negative); Ketones,Urine Negative (Negative); Leukocyte Esterase,Urine Negative (Negative); Nitrate,Urine Negative (Negative); PH,Urine 5.5 (5.0-8.5); Protein,Urine 2+ (Negative); Specific Gravity, Urine >= 1.030 (1.005-1.030); Urobilinogen,Urine 0.2 EU/dl (0.2)
[2023-06-04 10:23] LABS: Hematocrit 38.1 % (37.0-47.0); Hemoglobin 12.3 g/dL (12.2-16.2); Mean Corpuscular HGB Conc 32.3 g/dL (31.8-35.4); Mean Corpuscular Hemoglobin 29.6 pg (27.0-31.2); Mean Corpuscular Volume 91.8 fl (81-99); Platelet Count 199 K/mm3 (142-424); Red Blood Count 4.15 M/mm3 (4.20-5.40); Red Cell Distribution Width 13.4 % (11.5-17.5); White Blood Count 5.6 K/mm3 (4.8-10.8)
[2023-06-04 10:46] LABS: Creatinine,Urine Random 94 mg/dL (Not Estab.)
[2023-06-04 10:49] LABS: Albumin Level 3.9 g/dl (3.5-5.0); Anion Gap 13.2 mEq/L (5-15); Blood Urea Nitrogen 8 mg/dl (7-17); Calcium 8.8 mg/dl (8.4-10.2); Carbon Dioxide 28 mmol/L (22.0-30.0); Chloride 103 mmol/L (98-107); Estimated Glomerular Filt Rate 90 ml/min (>60); GFR (African American) 109 ML/MIN (>60); Glucose 212 mg/dl (74-100); Phosphorous 4.1 mg/dl (2.5-4.5); Potassium 4.2 mmoL/L (3.5-5.1); Sodium 140 mmol/L (136-145)
[2023-06-04 11:15] LABS: Bacteria,Urine 1+ /lpf
== END ==
PROVIDERS: PCP Emergency Medicine; Visit Provider Internal Medicine Nephrology
DX: R80.9 Proteinuria, unspecified (principal)
CPT/HCPCS: 36415; 80069; 81001; 82570; 84155; 85014; 85018; 85048; 85049

== ENCOUNTER → 2023-06-04 15:06 | Outpatient (POV) | payer BC, SELFPAY | PROVIDERS: Visit Provider Internal Medicine Nephrology | DX: Z00.00 Encounter for general adult medical examination without abnormal findings (principal) ==

== ENCOUNTER → 2023-06-12 23:36 | Outpatient (CLI) | payer BC, SELFPAY ==
[2023-06-12 19:09] LABS: Basophils % 0.4 % (0.1-2.0); Eosinophils # 0.2 K/mm3 (0.0-0.4); Eosinophils % 3.1 % (0.1-12.0); Hematocrit 35.6 % (37.0-47.0); Hemoglobin 12.3 g/dL (12.2-16.2); Lymphocytes # 1.6 K/mm3 (0.7-4.5); Lymphocytes % 29.8 % (10-50); Mean Corpuscular HGB Conc 34.4 g/dL (31.8-35.4); Mean Corpuscular Hemoglobin 31.7 pg (27.0-31.2); Mean Corpuscular Volume 92.1 fl (81-99); Mean Platelet Volume 11.3 fl (7.4-10.4); Monocytes # 0.3 K/mm3 (0.1-1.0); Monocytes % 5.1 % (1.7-9.3); Neutrophils # 3.3 K/mm3 (1.8-7.8); Neutrophils % 61.6 % (37.0-80.0); Platelet Count 159 K/mm3 (142-424); Red Blood Count 3.87 M/mm3 (4.20-5.40); Red Cell Distribution Width 13.3 % (11.5-17.5); White Blood Count 5.3 K/mm3 (4.8-10.8)
[2023-06-12 19:34] LABS: Alanine Aminotransferase 34 U/L (12-78); Alkaline Phosphatase 73 U/L (38-126); Anion Gap 15.7 mEq/L (5-15); Aspartate Amino Transferase 48 U/L (14-36); Blood Urea Nitrogen 8 mg/dl (7-17); Calcium 8.8 mg/dl (8.4-10.2); Carbon Dioxide 30 mmol/L (22.0-30.0); Chloride 96 mmol/L (98-107); Estimated Glomerular Filt Rate 90 ml/min (>60); GFR (African American) 109 ML/MIN (>60); Glucose 223 mg/dl (74-100); Potassium 3.7 mmoL/L (3.5-5.1); Sodium 138 mmol/L (136-145)
[2023-06-12 19:46] LABS: Albumin Level 3.9 g/dl (3.5-5.0); Albumin/Globulin Ratio 1.4 (1.1-1.8); Globulin 2.7 g/dL (1.3-3.2); Total Protein,Serum 6.6 g/dl (6.3-8.2)
[2023-06-12 19:48] LABS: Bilirubin,Total 0.1 mg/dl (0.2-1.3)
[2023-06-16 12:07] LABS: HBsAg Screen Negative; HIV Screen 4th Generation wRfx Non Reactive; Hep A Ab, IGM Negative; Hep A Ab, Total Negative; Hep B Core Ab, IgM Negative
[2023-06-16 12:12] LABS: Hepatitis B Surface Antigen Negative
[2023-06-16 12:13] LABS: HCV Ab Non Reactive; Hep B Core Ab, Total Negative; Hep B Surface Ab, Qual Non Reactive; Hepatitis C Antibody Non Reactive
== END ==
PROVIDERS: PCP Emergency Medicine; Visit Provider Student in an Organized Health Care Education/Training Program
DX: Z20.2 Contact with and (suspected) exposure to infections with a predominantly sexual mode of transmission (principal); R53.83 Other fatigue; Z20.5 Contact with and (suspected) exposure to viral hepatitis; J02.9 Acute pharyngitis, unspecified; Z11.4 Encounter for screening for human immunodeficiency virus [HIV]
CPT/HCPCS: 80053; 80074; 85025; 86703; 86704; 86706; 86708; 87070; 87340; 87380; 87522; 87902; G0432

== ENCOUNTER → 2023-06-30 07:58 | Outpatient (CLI) | payer BC, SELFPAY ==
[2023-06-30 20:32] LABS: Basophils % 0.7 % (0.1-2.0); Eosinophils # 0.1 K/mm3 (0.0-0.4); Eosinophils % 2.1 % (0.1-12.0); Hematocrit 35.1 % (37.0-47.0); Hemoglobin 12.2 g/dL (12.2-16.2); Lymphocytes # 1.7 K/mm3 (0.7-4.5); Lymphocytes % 30.7 % (10-50); Mean Corpuscular HGB Conc 34.8 g/dL (31.8-35.4); Mean Corpuscular Hemoglobin 31.3 pg (27.0-31.2); Mean Corpuscular Volume 89.9 fl (81-99); Mean Platelet Volume 10.8 fl (7.4-10.4); Monocytes # 0.3 K/mm3 (0.1-1.0); Monocytes % 4.9 % (1.7-9.3); Neutrophils # 3.5 K/mm3 (1.8-7.8); Neutrophils % 61.7 % (37.0-80.0); Platelet Count 185 K/mm3 (142-424); Red Cell Distribution Width 13.4 % (11.5-17.5); White Blood Count 5.7 K/mm3 (4.8-10.8)
[2023-06-30 22:01] LABS: 25-OH Vitamin D, Total 33.1 ng/mL (30-100)
[2023-06-30 22:51] LABS: Vitamin B12 559 pg/mL (239-931)
[2023-06-30 22:56] LABS: Folate 9.79 ng/mL
[2023-06-30 23:54] LABS: Iron 50 ug/dL (37-170)
[2023-07-01 00:04] LABS: Total Iron Binding Capacity 236 ug/dL (265-497)
[2023-07-01 00:44] LABS: Ferritin 69.6 ng/ml (6.24-137)
== END ==
PROVIDERS: PCP Student in an Organized Health Care Education/Training Program; Visit Provider Student in an Organized Health Care Education/Training Program
DX: D64.9 Anemia, unspecified (principal); Z86.39 Personal history of other endocrine, nutritional and metabolic disease; Z68.41 Body mass index [BMI] 40.0-44.9, adult
CPT/HCPCS: 82306; 82607; 82728; 82746; 83540; 83550; 85025

== ENCOUNTER → 2023-07-28 08:01 | Outpatient (CLI) | payer BC, SELFPAY ==
[2023-07-28 18:19] LABS: Adenovirus,PCR Not Detected (NotDetected); Coronavirus 19, PCR Not Detected (NotDetected); Coronavirus 229E Not Detected (NotDetected); Coronavirus NL63 Not Detected (NotDetected); Coronavirus OC43 Not Detected (NotDetected); Coronovirus HKU1,PCR Not Detected (NotDetected); Human Metapneumovirus Not Detected (NotDetected); Influenza A, PCR Not Detected (NotDetected); Influenza AH1, 2009 Not Detected (NotDetected); Influenza AH1, PCR Not Detected (NotDetected); Influenza AH3,PCR Not Detected (NotDetected); Influenza B, PCR Not Detected (NotDetected); Parainfluenza 1, PCR Not Detected (NotDetected); Parainfluenza 2, PCR Not Detected (NotDetected); Parainfluenza 3, PCR Not Detected (NotDetected); Parainfluenza 4, PCR Not Detected (NotDetected); Respiratory Syncytial Virus Not Detected (NotDetected); Rhinovirus/Enterovirus Not Detected (NotDetected)
== END ==
PROVIDERS: PCP Student in an Organized Health Care Education/Training Program; Visit Provider Student in an Organized Health Care Education/Training Program
DX: R05.8 Other specified cough (principal); R09.81 Nasal congestion; R09.89 Other specified symptoms and signs involving the circulatory and respiratory systems
CPT/HCPCS: 87632; 87635

== ENCOUNTER 2023-08-23 11:34 | Emergency (ER) | payer BC, SELFPAY ==
[2023-08-23 11:45] VITALS: BP 131/80; PULSE 88; RESP 18; TEMP 36.8; O2SAT 95; BMI 42.7
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
--- NOTE | 2023-08-23 11:52 | EXP.UTC ---
Discharge Plan Disposition Patient Disposition: Home, Self-Care Condition: Good Prescriptions Prescriptions: No Action baclofen 10 mg tablet PO gabapentin 600 mg tablet 600 mg PO TID (DME) blood sugar diagnostic Strip See Rx Instructions .ROUTE .MEDSUPPLY Qty: 10 Rx Instructions: As directed (DME) Dexcom Wax Ball Molder Misc See Rx Instructions .ROUTE .MEDSUPPLY Qty: 1 0RF Rx Instructions: As directed Creon 36,000-114,000- 180,000 unit capsule,delayed release(DR/EC) 1 cap PO amitriptyline 10 mg tablet 10 mg PO DAILY lisinopril 10 mg tablet 10 mg PO DAILY [id number] [Bromfed DM] 2-30-10 mg/5 mL syrup 5 ml PO Q4-6H PRN (Reason: cold symptoms) Qty: 118 0RF ondansetron 8 mg tablet,disintegrating 8 mg PO Q12H PRN (Reason: nausea and vomiting) Qty: 20 0RF fluticasone propionate [Allergy Relief (fluticasone)] 50 mcg/actuation spray,suspension 1 spray intranasal DAILY Qty: 16 2RF Rx Instructions: administer into each nostril (DME) lancets 28 gauge misc See Rx Instructions .ROUTE .MEDSUPPLY Qty: 100 0RF Rx Instructions: As directed check BG TID (DME) Blood Glucose Test Strip See Rx Instructions .Route Qty: 50 2RF Rx Instructions: As directed check BG TID (DME) blood glucose strip-disp meter Kit 0 1000units .Route .MEDSUPPLY Qty: 100 0RF Rx Instructions: As directed Gvoke HypoPen 1-Pack 1 mg/0.2 mL auto-injector 1 mg SQ ONCE Qty: 0.2 0RF Rx Instructions: use if glucose less than 50 and unable to eat or drink (DME) insulin pump cartridge Cartridge See Rx Instructions .ROUTE .MEDSUPPLY Qty: 5 7RF Rx Instructions: [place] directed [place] [place] Dexcom G6 Transmitter Device See Rx Instructions .ROUTE .COMPLEX Qty: 1 10RF Dose Instruction: USE DIRECTED Rx Instructions: USE DIRECTED insulin lispro [Humalog U-100 Insulin] 100 unit/mL solution See Rx Instructions .ROUTE .COMPLEX Qty: 20 3RF Dose Instruction: USE DIRECTED PER SLIDING SCALE (MAX OF 80 UNITS PER DAY) Rx Instructions: USE DIRECTED PER SLIDING SCALE (MAX OF 80 UNITS PER DAY) (DME) Dexcom G6 Sensor Device See Rx Instructions .ROUTE .MEDSUPPLY Qty: 3 4RF Rx Instructions: As directed metformin 1,000 mg tablet See Rx Instructions .ROUTE .COMPLEX Qty: 60 2RF Dose Instruction: TAKE ONE TABLET BY MOUTH 2 TIMES A DAY Rx Instructions: TAKE ONE TABLET BY MOUTH 2 TIMES A DAY ferrous sulfate [FeroSul] 325 mg (65 mg iron) tablet See Rx Instructions .ROUTE .COMPLEX Qty: 60 2RF Dose Instruction: TAKE ONE TABLET BY MOUTH 2 TIMES A DAY Rx Instructions: TAKE ONE TABLET BY MOUTH 2 TIMES A DAY omeprazole 20 mg capsule,delayed release(DR/EC) See Rx Instructions .ROUTE .COMPLEX Qty: 30 2RF Dose Instruction: TAKE ONE CAPSULE BY MOUTH ONCE A DAY Rx Instructions: TAKE ONE CAPSULE BY MOUTH ONCE A DAY loratadine 10 mg tablet See Rx Instructions .ROUTE .COMPLEX Qty: 90 3RF Dose Instruction: TAKE ONE TABLET BY MOUTH ONCE A DAY Rx Instructions: TAKE ONE TABLET BY MOUTH ONCE A DAY sertraline [Zoloft] 50 mg tablet 50 mg PO DAILY Qty: 90 0RF albuterol sulfate 8.5 GM HFA aerosol inhaler 2 puffs inhalation Q6HP PRN (Reason: Shortness Of Breath) 30 Days Qty: 1 5RF Referrals Follow up/Referrals: Darlene Putnam PA [Primary Care Provider] - See instructions Activity Restrictions/Add. Instructions Additional Instructions/Restrictions: *Ibuprofen arnulfo 6 hours with meal as needed for pain/inflammation *Not additional anti-inflammatory like motrin, aleve, advil with the above amount of ibuprofen. You can still take Tylenol every 4 hours as needed if you need something else for pain *Ice 20 minutes every 2 hours for the first 48 hours after the initial injury followed by moist heat every 20 minute
[2023-08-23 13:06] VITALS: BP 131/80; PULSE 88; RESP 18; TEMP 36.8; O2SAT 95
== END 2023-08-23 13:15 | disposition home or self-care (01) ==
PROVIDERS: Emergency Provider Nurse Practitioner; PCP Physician Assistant
DX: M79.601 Pain in right arm (principal); S40.011A Contusion of right shoulder, initial encounter; S40.021A Contusion of right upper arm, initial encounter; S90.32XA Contusion of left foot, initial encounter; E11.9 Type 2 diabetes mellitus without complications; J45.909 Unspecified asthma, uncomplicated; Z79.4 Long term (current) use of insulin; Z79.84 Long term (current) use of oral hypoglycemic drugs; Z87.891 Personal history of nicotine dependence; W06.XXXA Fall from bed, initial encounter
CPT/HCPCS: 73030; 73630; 99212; 99214; G0463

== ENCOUNTER 2023-09-22 13:58 | Outpatient (CLI) | payer BC, SELFPAY ==
[2023-09-22 14:16] LABS: Microscopic, Urine URINE MICROSCOPIC (MICROSCOPIC)
[2023-09-22 14:45] LABS: Hematocrit 38.2 % (37.0-47.0); Hemoglobin 12.7 g/dL (12.2-16.2); Mean Corpuscular HGB Conc 33.3 g/dL (31.8-35.4); Mean Corpuscular Hemoglobin 29.6 pg (27.0-31.2); Mean Corpuscular Volume 88.7 fl (81-99); Platelet Count 195 K/mm3 (142-424); Red Cell Distribution Width 13.9 % (11.5-17.5); White Blood Count 5.4 K/mm3 (4.8-10.8)
[2023-09-22 14:55] LABS: Appearance,Urine CLEAR (Clear); Bilirubin,Urine Negative (Negative); Blood, Urine Negative (Negative); Color,Urine YELLOW (Yellow); Glucose,Urine (UA) TRACE (Negative); Ketones,Urine Negative (Negative); Leukocyte Esterase,Urine Negative (Negative); Nitrate,Urine Negative (Negative); Protein,Urine 2+ (Negative); Specific Gravity, Urine >= 1.030 (1.005-1.030); Urobilinogen,Urine 0.2 EU/dl (0.2)
[2023-09-22 15:03] LABS: Albumin Level 4.2 g/dl (3.5-5.0); Chloride 102 mmol/L (98-107); Potassium 4.2 mmoL/L (3.5-5.1); Sodium 140 mmol/L (136-145)
[2023-09-22 15:06] LABS: Anion Gap 11.2 mEq/L (5-15); Blood Urea Nitrogen 9 mg/dl (7-17); Carbon Dioxide 31 mmol/L (22.0-30.0); Estimated Glomerular Filt Rate 90 ml/min (>60); GFR (African American) 109 ML/MIN (>60); Glucose 135 mg/dl (74-100); Phosphorous 4.1 mg/dl (2.5-4.5)
[2023-09-22 15:10] LABS: Bacteria,Urine Trace /lpf
[2023-09-22 15:18] LABS: Creatinine,Urine Random 86 mg/dL (Not Estab.)
[2023-09-23 08:19] LABS: Complement C3 165 mg/dL (82-167)
[2023-09-23 10:12] LABS: HBsAg Screen Negative (Negative); HCV Ab Non Reactive (Non Reactive); Hep A Ab, IGM Negative (Negative); Hep B Core Ab, IgM Negative (Negative)
[2023-09-23 11:39] LABS: Antinuclear Antibodies, IFA Negative (.)
[2023-09-23 14:17] LABS: Albumin 3.6 g/dL (2.9-4.4); Alpha-1-Globulin 0.2 g/dL (0.0-0.4); Gamma Globulin 1.1 g/dL (0.4-1.8); Protein, Total 7.1 g/dL (6.0-8.5)
[2023-09-23 15:10] LABS: Immunoglobulin A, Qn 335 mg/dL (87-352); Immunoglobulin G, Qn 895 mg/dL (586-1602); Immunoglobulin M, Qn 167 mg/dL (26-217)
[2023-09-27 10:12] LABS: PDF SCANNED IMAGE
[2023-09-27 10:13] LABS: Free Kappa Lt Chains 51.5; Free Lambda Lt Chains 31.2
== END 2023-09-22 23:59 ==
LOC: LAB 13:59
PROVIDERS: PCP Student in an Organized Health Care Education/Training Program; Visit Provider Internal Medicine Nephrology
DX: R80.9 Proteinuria, unspecified (principal)
CPT/HCPCS: 36415; 80069; 80074; 81001; 82570; 82784; 83883; 84155; 84156; 84165; 85014; 85018; 85048; 85049; 86038; 86161; 86334

== ENCOUNTER 2023-11-13 18:28 | Outpatient (CLI) | payer BC, SELFPAY | END 2023-11-13 23:59 | LOC: LAB.DROPOF 18:28 | PROVIDERS: PCP Student in an Organized Health Care Education/Training Program; Visit Provider Student in an Organized Health Care Education/Training Program | DX: J02.9 Acute pharyngitis, unspecified (principal); R05.9 Cough, unspecified; Z20.828 Contact with and (suspected) exposure to other viral communicable diseases | CPT/HCPCS: 87070 ==

== ENCOUNTER 2023-11-16 19:39 | Outpatient (CLI) | payer BC, SELFPAY ==
[2023-11-16 18:49] LABS: Adenovirus,PCR Not Detected (NotDetected); Coronavirus 19, PCR Not Detected (NotDetected); Coronavirus NL63 Not Detected (NotDetected); Coronavirus OC43 Not Detected (NotDetected); Coronovirus HKU1,PCR Not Detected (NotDetected); Human Metapneumovirus Not Detected (NotDetected); Influenza A, PCR Not Detected (NotDetected); Influenza AH1, 2009 Not Detected (NotDetected); Influenza AH1, PCR Not Detected (NotDetected); Influenza AH3,PCR Not Detected (NotDetected); Influenza B, PCR Not Detected (NotDetected); Parainfluenza 1, PCR Not Detected (NotDetected); Parainfluenza 2, PCR Not Detected (NotDetected); Parainfluenza 3, PCR Not Detected (NotDetected); Parainfluenza 4, PCR Not Detected (NotDetected); Respiratory Syncytial Virus Not Detected (NotDetected); Rhinovirus/Enterovirus Not Detected (NotDetected)
[2023-11-17 00:32] LABS: Coronavirus 229E Detected (NotDetected)
== END 2023-11-16 23:59 ==
LOC: LAB.DROPOF 19:40
PROVIDERS: PCP Student in an Organized Health Care Education/Training Program; Visit Provider Student in an Organized Health Care Education/Training Program
DX: R05.9 Cough, unspecified (principal); B97.29 Other coronavirus as the cause of diseases classified elsewhere
CPT/HCPCS: 87581; 87632; 87635; 87798

== ENCOUNTER 2023-12-29 14:27 | Outpatient (CLI) | payer BC, SELFPAY ==
--- NOTE | 2023-12-29 14:31 | XR_ITS ---
FINAL REPORT CLINICAL HISTORY: L ankle/foot pain after fall COMPARISON: None FINDINGS: Three views show no evidence of acute displaced fracture or dislocation of the visualized bony architecture. There are moderate sized posterior and plantar calcaneal spurs present. IMPRESSION: No acute bony abnormality. Moderate sized posterior and plantar calcaneal spurs. Reviewed, Interpreted and Dictated by Leonel Unger MD Transcribed by Kimberly Carbajal Authenticated and [facility]
--- NOTE | 2023-12-29 14:31 | XR_ITS ---
FINAL REPORT CLINICAL HISTORY: L ankle/foot pain after fall COMPARISON: None FINDINGS: Three views show no evidence of acute displaced fracture or dislocation of the visualized bony architecture. The joint spaces appear normal. Note is made of posterior and plantar calcaneal spurs. IMPRESSION: No acute bony abnormality. Posterior and plantar calcaneal spurs. Reviewed, Interpreted and Dictated by Leonel Unger MD Transcribed by Kimberly Carbajal Authenticated and [facility]
== END 2023-12-29 23:59 | disposition home or self-care (01) ==
LOC: LAB.DROPOF 14:28
PROVIDERS: PCP Student in an Organized Health Care Education/Training Program; Visit Provider Student in an Organized Health Care Education/Training Program
DX: M25.572 Pain in left ankle and joints of left foot (principal); M79.672 Pain in left foot; J02.9 Acute pharyngitis, unspecified; Z87.891 Personal history of nicotine dependence
CPT/HCPCS: 73610; 73630; 87070

== ENCOUNTER 2024-01-03 18:27 | Emergency (ER) | payer BC, SELFPAY ==
[2024-01-03 18:40] VITALS: BP 167/80; PULSE 97; RESP 18; TEMP 36.8; O2SAT 99; BMI 46.2
--- NOTE | 2024-01-03 18:48 | XR_ITS ---
PROCEDURE INFORMATION: Exam: XR Left Foot Exam date and time: 01/03/2024 6:51 PM Age: 48 years old Clinical indication: Pain; Foot; Left TECHNIQUE: Imaging protocol: Radiologic exam of the left foot. Views: 3 or more views. Total images: 3 COMPARISON: CR XR FOOT LT MIN 3V 12/29/2023 2:32 PM FINDINGS: Bones/joints: Interval pathologic fracture of the navicular bone, suspected from underlying osteonecrosis. No additional fracture. No joint dislocation. Joint spaces are well maintained and appropriate for age. Prominent calcaneal enthesophytes at the insertion of the Achilles tendon and plantar fascia. Soft tissues: Moderate soft tissue swelling and edema. IMPRESSION: 1. Interval pathologic fracture of the navicular bone. 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 Moderate soft tissue swelling and edema. 3. Prominent calcaneal enthesophytes.
--- NOTE | 2024-01-03 18:48 | XR_ITS ---
PROCEDURE INFORMATION: Exam: XR Left Ankle Exam date and time: 01/03/2024 6:51 PM Age: 48 years old Clinical indication: Pain; Ankle; Left TECHNIQUE: Imaging protocol: Radiologic exam of the left ankle. Views: 3 or more views. Total images: 3 COMPARISON: CR XR ANKLE LT MIN 3V 12/29/2023 2:32 PM FINDINGS: Bones/joints: No acute fracture or joint dislocation. Ankle mortise is maintained. Small tibiotalar joint effusion. No concerning bone lesions or calcifications. No significant degenerative arthropathy. Prominent calcaneal enthesophytes at the insertion of the Achilles tendon and plantar fascia. Soft tissues: Moderate soft tissue edema. Benign soft tissue calcifications. IMPRESSION: 1. No acute osseous abnormality. 2. Small joint effusion 3. Moderate soft tissue edema. 4. Prominent calcaneal enthesophytes.
--- NOTE | 2024-01-03 19:02 | PC.NURSE ---
Pt went to RAD
--- NOTE | 2024-01-03 19:07 | ED_ITS ---
Discharge Plan Disposition Patient Disposition: Home, Self-Care Condition: Good Prescriptions Prescriptions: No Action baclofen 10 mg tablet PO gabapentin 600 mg tablet 600 mg PO TID (DME) blood sugar diagnostic Strip See Rx Instructions .ROUTE .MEDSUPPLY Qty: 10 Rx Instructions: As directed ([facility]) Dexcom Architectural Superintendent Misc See Rx Instructions .ROUTE .MEDSUPPLY Qty: 1 0RF Rx Instructions: As directed Creon 36,000-114,000- 180,000 unit capsule,delayed release(DR/EC) 1 cap PO amitriptyline 10 mg tablet 10 mg PO DAILY lisinopril 10 mg tablet 10 mg PO DAILY ondansetron 8 mg tablet,disintegrating 8 mg PO Q12H PRN (Reason: nausea and vomiting) Qty: 20 0RF fluticasone propionate [Allergy Relief (fluticasone)] 50 mcg/actuation spray,suspension 1 spray intranasal DAILY Qty: 16 2RF Rx Instructions: administer into each nostril ([facility]) lancets [facility] See Rx Instructions .ROUTE .MEDSUPPLY Qty: 100 0RF Rx Instructions: As directed check BG TID ([facility]) Blood Glucose Test Strip See Rx Instructions .Route Qty: 50 2RF Rx Instructions: As directed check BG TID Afrin (oxymetazoline) 0.05 % mist 2 spray intranasal Q12H PRN (Reason: nose bleed) 3 Days Qty: 15 0RF Havelock Saline Gel 1 applic topical HS PRN (Reason: dry nasal passages) Qty: 14.1 0RF hydrocodone-acetaminophen 10-325 mg tablet 1 tab PO PRN naproxen 375 mg tablet 375 mg PO BID PRN (Reason: pain) Qty: 30 0RF ([facility]) blood glucose strip-disp meter Kit 0 1000units .Route .MEDSUPPLY Qty: 100 0RF Rx Instructions: As directed Gvoke HypoPen 1-Pack 1 mg/0.2 mL auto-injector 1 mg SQ ONCE Qty: 0.2 0RF Rx Instructions: use if glucose less than 50 and unable to eat or drink ([facility]) insulin pump cartridge Cartridge See Rx Instructions .ROUTE .MEDSUPPLY Qty: 5 7RF Rx Instructions: As directed insulin lispro [Humalog U-100 Insulin] 100 unit/mL solution See Rx Instructions .ROUTE .COMPLEX Qty: 20 3RF Dose Instruction: USE DIRECTED PER SLIDING SCALE (MAX OF 80 UNITS PER DAY) Rx Instructions: USE DIRECTED PER SLIDING SCALE (MAX OF 80 UNITS PER DAY) metformin 1,000 mg tablet See Rx Instructions .ROUTE .COMPLEX Qty: 60 2RF Dose Instruction: TAKE ONE TABLET BY MOUTH 2 TIMES A DAY Rx Instructions: TAKE ONE TABLET BY MOUTH 2 TIMES A DAY ferrous sulfate [FeroSul] 325 mg (65 mg iron) tablet See Rx Instructions .ROUTE .COMPLEX Qty: 60 2RF Dose Instruction: TAKE ONE TABLET BY MOUTH 2 TIMES A DAY Rx Instructions: TAKE ONE TABLET BY MOUTH 2 TIMES A DAY omeprazole 20 mg capsule,delayed release(DR/EC) See Rx Instructions .ROUTE .COMPLEX Qty: 30 2RF Dose Instruction: TAKE ONE CAPSULE BY MOUTH ONCE A DAY Rx Instructions: TAKE ONE CAPSULE BY MOUTH ONCE A DAY loratadine 10 mg tablet See Rx Instructions .ROUTE .COMPLEX Qty: 90 3RF Dose Instruction: TAKE ONE TABLET BY MOUTH ONCE A DAY Rx Instructions: TAKE ONE TABLET BY MOUTH ONCE A DAY sertraline [Zoloft] 50 mg tablet 50 mg PO DAILY Qty: 90 0RF (DME) Dexcom G6 Sensor Device See Rx Instructions .ROUTE .MEDSUPPLY Qty: 3 4RF Rx Instructions: As directed (DME) Dexcom G6 Transmitter Device See Rx Instructions .ROUTE .COMPLEX Qty: 1 10RF Dose Instruction: USE DIRECTED Rx Instructions: USE DIRECTED albuterol sulfate 8.5 GM HFA aerosol inhaler 2 puffs inhalation Q6HP PRN (Reason: Shortness Of Breath) 30 Days Qty: 1 5RF Referrals Follow up/Referrals: Coco Umana PA [Primary Care Provider] - See instructions Activity Restrictions/Add. Instructions Additional Instructions/Restrictions: Weightbearing as tolerated rest Ice with cold pack for 20 minutes remove may repeat for comfort every hour boot for support and swelling no less in the shower. Be sure not too tight but not to lose either Elevate with ankle above your heart as much as possible to help reduce swelling and therefore pain Ibuprofen every 6 hours as needed for pain or inflammation. If needs something more you can take Tylenol every 4 hours as needed as long as her primary care has told he was okayed for you to take both. If improving any do not need to follow-up you can bring begin exercising 2-3 weeks after injury. Follow-up immediately if new or worsening symptoms or no noticeable improvement over the next 3-5 days. call ortho if no improvement follow up with pcp monitor foot close with boot for breakdown Clinical Impressions Clinical Impression: Acute foot pain Instructions Patient Instructions: DI for Foot Pain Discharge ED Provider: Andrea ([facility] HPI General Stated complaint: Left leg is swollen and pain Mode of Arrival: Ambulatory Source of Information: Patient Limitations: No Limitations Time Seen by Provider: 01/03/24 19:07 Description of Symptoms (Recalled from Triage Doc. by RN): Pt's symptoms are left foot and ankle pain. She tripped over [employer] clothes on 12/29/2023. HEENT Symptoms (Recalled from RN notes): No Resp Symptoms (Recalled from RN notes): No Skin Symptoms (Recalled from RN notes): No MS Symptoms (Recalled from RN notes): Yes Functional Status (Recalled from RN notes): n/a History of Present Illness Provider Complaint: 48 yr old female presents for c/o left foot and ankle pain. She tripped over [employer] on 12/29/2023. Related Data Home Medications Medication Instructions Recorded Confirmed baclofen 10 mg tablet mg PO 04/17/20 12/29/23 blood sugar diagnostic #10 ea 11/27/20 12/29/23 gabapentin 600 mg tablet 600 mg PO TID 08/05/21 12/29/23 luxrxe-[id number] 1 cap PO 08/29/22 12/29/23 36,000-114,000-180,000 unit capsule,delay rel (Creon) amitriptyline 10 mg tablet 10 mg PO DAILY 07/28/23 12/29/23 lisinopril 10 mg tablet 10 mg PO DAILY 07/28/23 12/29/23 hydrocodone 10 mg-acetaminophen 1 tab PO PRN 12/29/23 12/29/23 325 mg tablet Previous Rx's Medication Instructions Recorded blood glucose test strips with #100 ea 04/07/19 disposable meter kit blood-glucose meter,continuous #1 ea 08/21/21 (Dexcom Architectural Superintendent) glucagon 1 mg/0.2 mL subcutaneous 1 mg (0.2 mL) SQ ONCE #0.2 mL 09/07/21 auto-injector (Gvoke HypoPen 1-Pack) albuterol sulfate 90 mcg/actuation 2 puffs inhalation Q6HP PRN 09/18/21 aerosol inhaler Shortness Of Breath 30 days #1 ea insulin pump cartridge #5 ea 11/28/21 insulin lispro 100 unit/mL See Rx Instructions .Route 07/03/22 subcutaneous solution (Humalog .COMPLEX #20 mL U-100 Insulin) metformin 1,000 mg tablet See Rx Instructions .Route 09/18/22 .COMPLEX #60 tabs ondansetron 8 mg disintegrating 8 mg PO Q12H PRN nausea and 10/23/22 tablet vomiting #20 tabs ferrous sulfate 325 mg (65 mg See Rx Instructions .Route 11/11/22 iron) tablet (FeroSul) .COMPLEX #60 tabs omeprazole 20 mg capsule,delayed See Rx Instructions .Route 03/06/23 release .COMPLEX #30 caps fluticasone propionate 50 1 spray intranasal DAILY #16 grams 06/12/23 mcg/actuation nasal spray,suspension (Allergy Relief (fluticasone)) blood sugar diagnostic (Blood #50 ea 06/30/23 Glucose Test strips) lancets 28 gauge #100 ea 06/30/23 loratadine 10 mg tablet See Rx Instructions .Route 07/10/23 .COMPLEX #90 tabs sertraline 50 mg tablet (Zoloft) 50 mg PO DAILY #90 tabs 11/05/23 oxymetazoline 0.05 % nasal mist 2 spray intranasal Q12H PRN nose 11/16/23 (Afrin (oxymetazoline)) bleed 3 days #15 mL sodium chloride-aloe vera nasal 1 applic topical HS PRN dry nasal 11/16/23 gel (Havelock Saline nasal gel) passages #14.1 grams Dexcom G6 Transmitter #1 ea 12/04/23 (blood-glucose transmitter) blood-glucose sensor (Dexcom G6 #3 ea 12/04/23 Sensor device) naproxen 375 mg tablet 375 mg PO BID PRN pain #30 tabs 12/29/23 Allergies Allergy/AdvReac Type Severity Reaction Status Date / Time milk [MILK] Allergy Mild Verified 01/03/24 19:02 adhesive tape Allergy Verified 01/03/24 19:02 bee venom protein (honey bee) Allergy Verified 01/03/24 19:02 Iodinated Contrast Media Allergy Verified 01/03/24 19:02 DISHWASHING LIQUID AdvReac Unknown STATES IT Uncoded 11/16/23 10:36 EATS THE SKIN OFF HER HANDS Worker's Comp Is this a Worker's Comp case?: No [facility] Disclaimer: The information contained in this section may have been updated after the patient was seen, as this information can be updated by other users. Medical History , CHEMICAL PROCESSOR) Depression Anxiety Migraine Diabetes mellitus, type 2 Asthma Major depressive disorder Surgical History , CHEMICAL PROCESSOR) History of cholecystectomy Family History , CHEMICAL PROCESSOR) No significant family history Social History , CHEMICAL PROCESSOR) Smoking Status: Former smoker tobacco type: cigarettes packs per day: 1 second hand exposure: Yes alcohol intake: never substance use type: denies use current occupational status: other Travel in the last 8 weeks: None household members: family and children housing: house number of children: 1 caffeine: Yes ROS Obtained: Yes All systems reviewed & no additional complaints except as documented Constitutional Constitutional: Reports system reviewed and no additional complaints, except as documented Eyes Eyes: Reports system reviewed and no additional complaints, except as documented ENT Ears, Nose, Mouth, and Throat: Reports system reviewed and no additional complaints, except as documented Cardiovascular Cardiovascular: Reports system reviewed and no additional complaints, except as documented Gastrointestinal Gastrointestingal: Reports system reviewed and no additional complaints, except as documented Musculoskeletal Musculoskeletal: Reports system reviewed and no additional complaints, except as documented, Reports as per HPI, Reports arthralgias, Reports joint swelling and Reports limited range of motion Integumentary/Breasts Skin/Breast: Reports system reviewed and no additional complaints, except as documented Endocrine Endocrine: Reports system reviewed and no additional complaints, except as documented Hematologic/Lymphatic Henatologic/Lymphatic: Reports system reviewed and no additional complaints, except as documented Allergic/Immunologic Allergic/Immunologic: Reports system reviewed and no additional complaints, except as documented Physical Exam General General appearance: alert and in no apparent distress Head Head exam: atraumatic Eye Eye exam: Present normal appearance and PERRL ENT ENT exam: Present normal exam Respiratory Respiratory exam: Present normal lung sounds bilaterally Cardiovascular Cardiovascular exam: Present regular rate and normal rhythm Expanded Lower Extremity Exam Left: Top foot image: 2 1. redness and swelling Neurological Exam Neurological exam: Present alert and oriented X3 Skin Skin exam: Present warm and intact Medical Decision Making Medical Records Medical records reviewed: Yes I reviewed the patient's medical records. Scot Inquiry Pt receiving controlled substance: No Scot was queried for this patient: No Vital Signs: 01/03/24 18:40 Temperature 98.2 F Temperature Source Oral Pulse Rate [Right Radial] 97 H Respiratory Rate 18 Blood Pressure [Right Arm] 167/80 H Blood Pressure Mean [Right Arm] 109 Blood Pressure Source [Right Arm] Automatic Cuff Blood Pressure Position [Right Arm] Sitting 02 Sat by Pulse Oximetry 99 Oxygen Delivery Method Room Air Orders (Tests/Meds): ORDERS Category Date Time Status Ankle XR - Left minimum 3 Views [XR ankle LT min 3V] Exams 01/03/24 18:48 Taken Stat XR foot LT min 3V Stat Exams 01/03/24 18:48 Taken
--- NOTE | 2024-01-03 19:35 | PC.NURSE ---
Gave pt a walking boot and hugo wrap
[2024-01-03 19:40] VITALS: BP 167/80; PULSE 97; RESP 18; TEMP 36.8; O2SAT 99
== END 2024-01-03 19:49 | disposition home or self-care (01) ==
PROVIDERS: Emergency Provider Nurse Practitioner Family; PCP Student in an Organized Health Care Education/Training Program
DX: M79.672 Pain in left foot (principal); W01.10XA Fall on same level from slipping, tripping and stumbling with subsequent striking against unspecified object, initial encounter
CPT/HCPCS: 73610; 73630; 99212; 99214; G0463

== ENCOUNTER 2024-01-29 11:32 | Outpatient (CLI) | payer BC, SELFPAY ==
[2024-01-29 18:02] LABS: Basophils # 0.1 K/mm3 (0-0.2); Basophils % 0.8 % (0.1-2.0); Eosinophils # 0.2 K/mm3 (0.0-0.4); Eosinophils % 3.1 % (0.1-12.0); Hematocrit 36.9 % (37.0-47.0); Lymphocytes # 1.5 K/mm3 (0.7-4.5); Lymphocytes % 25.8 % (10-50); Mean Corpuscular HGB Conc 32.5 g/dL (31.8-35.4); Mean Corpuscular Hemoglobin 29.9 pg (27.0-31.2); Mean Corpuscular Volume 92.1 fl (81-99); Monocytes # 0.3 K/mm3 (0.1-1.0); Neutrophils # 3.9 K/mm3 (1.8-7.8); Neutrophils % 65.2 % (37.0-80.0); Platelet Count 215 K/mm3 (142-424); Red Cell Distribution Width 14.2 % (11.5-17.5)
[2024-01-29 19:06] LABS: Hemoglobin A1C 8.3 % (4.0-6.0)
[2024-01-29 19:44] LABS: Alanine Aminotransferase 46 U/L (12-78); Albumin Level 4.2 g/dl (3.5-5.0); Albumin/Globulin Ratio 1.4 (1.1-1.8); Alkaline Phosphatase 86 U/L (38-126); Anion Gap 16.7 mEq/L (5-15); Aspartate Amino Transferase 87 U/L (14-36); Bilirubin,Total 0.4 mg/dl (0.2-1.3); Blood Urea Nitrogen 12 mg/dl (7-17); Calcium 9.6 mg/dl (8.4-10.2); Carbon Dioxide 28 mmol/L (22.0-30.0); Chloride 98 mmol/L (98-107); Chol/HDL Ratio 8.3 (1-3.5); Cholesterol 265 mg/dl (140-200); Estimated Glomerular Filt Rate 77 ml/min (>60); GFR (African American) 93 ML/MIN (>60); Globulin 2.9 g/dL (1.3-3.2); Glucose 203 mg/dl (74-100); HDL Cholesterol 32 mg/dl (40-60); Potassium 4.7 mmoL/L (3.5-5.1); Sodium 138 mmol/L (136-145); Total Protein,Serum 7.1 g/dl (6.3-8.2); Triglycerides 423 mg/dl (30-150)
[2024-01-29 19:55] LABS: Direct LDL Cholesterol 145.13 mg/dL (100-129)
[2024-01-29 20:03] LABS: 25-OH Vitamin D, Total 30.1 ng/mL (30-100)
[2024-01-29 20:14] LABS: Thyroid Stimulating Hormone 1.61 uIU/mL (0.465-4.68)
== END 2024-01-29 23:59 | disposition home or self-care (01) ==
LOC: LAB.DROPOF 01-30 11:33
PROVIDERS: PCP Student in an Organized Health Care Education/Training Program; Visit Provider Student in an Organized Health Care Education/Training Program
DX: Z01.818 Encounter for other preprocedural examination (principal); Z13.29 Encounter for screening for other suspected endocrine disorder; E55.9 Vitamin D deficiency, unspecified; E11.69 Type 2 diabetes mellitus with other specified complication; Z79.4 Long term (current) use of insulin; Z79.899 Other long term (current) drug therapy
CPT/HCPCS: 80053; 80061; 82306; 83036; 84443; 85025

== ENCOUNTER 2024-02-05 11:29 | Outpatient (CLI) | payer BC, SELFPAY ==
--- NOTE | 2024-02-05 11:35 | XR_ITS ---
FINAL REPORT CLINICAL HISTORY: pre op, soa FINDINGS: 2 views of the chest were obtained . The heart is normal in size. The mediastinum is within normal limits. The lungs are clear. There is no pneumothorax. Osseous structures are unremarkable. IMPRESSION: No acute cardiopulmonary process. Reviewed, Interpreted and Dictated by Maximo Bonilla III, MD Transcribed by Linda Mock Authenticated and . [facility]
== END 2024-02-05 23:59 | disposition home or self-care (01) ==
LOC: RAD 11:30
PROVIDERS: PCP Student in an Organized Health Care Education/Training Program; Visit Provider Student in an Organized Health Care Education/Training Program
DX: Z01.811 Encounter for preprocedural respiratory examination (principal)
CPT/HCPCS: 71046

== ENCOUNTER 2024-02-08 11:26 | Outpatient (CLI) | payer BC, SELFPAY ==
[2024-02-08 12:30] LABS: Iron 82 ug/dL (37-170)
[2024-02-08 12:39] LABS: Total Iron Binding Capacity 247 ug/dL (265-497)
[2024-02-08 13:06] LABS: Ferritin 75.7 ng/ml (6.24-137)
[2024-02-08 13:29] LABS: Vitamin B12 612 pg/mL (239-931)
[2024-02-10 11:40] LABS: Peripheral Smear Review Scanned Result
== END 2024-02-08 23:59 | disposition home or self-care (01) ==
LOC: LAB 11:26
PROVIDERS: PCP Student in an Organized Health Care Education/Training Program; Visit Provider Student in an Organized Health Care Education/Training Program
DX: Z01.810 Encounter for preprocedural cardiovascular examination (principal); R00.2 Palpitations; R06.00 Dyspnea, unspecified; Z82.49 Family history of ischemic heart disease and other diseases of the circulatory system; E78.5 Hyperlipidemia, unspecified; R73.09 Other abnormal glucose; D64.9 Anemia, unspecified; Z68.41 Body mass index [BMI] 40.0-44.9, adult; E66.9 Obesity, unspecified
CPT/HCPCS: 36415; 82607; 82728; 82746; 83540; 83550; 93270

== ENCOUNTER 2024-02-22 08:02 | Outpatient (CLI) | payer BC, SELFPAY ==
--- NOTE | 2024-02-22 | CA_ITS ---
APPROVED REPORT Exam: Pharmacologic Technologist: Michelle Reyes, Ht: 5 ft 7 in Wt: 283 lbs BSA: 2.34 m2 HR: 87 bpm BP: 150/90 mmHg Rhythm: NSR Medical History Medications: Omeprazole,,,,, Metformin,,,,, Ferrous sulfate,,,,, Atorvastatin,,,,, Zoloft,,,,, INSULIN,,,,, INSULIN,,,,, Albuterol,,,,, LoraTADINE,,,,, Baclofen,,,,, Lancets,,,,, GlUCagon,,,,, Cardiac Risk Factors: Diabetes (non-insulin), FHX of CAD, Smoking Stress Test Details Test: LEXISCAN HR Resting HR: 82 bpm Max Heart Rate (APMHR): 173 bpm Max HR Achieved: 96 bpm Target HR (85% APMHR): 147 bpm % of APMHR: 55 Recovery HR: 94 bpm BP Resting BP: 150.0/90.0 mmHg Max BP: 150.0/90.0 mmHg Recovery BP: 130.0/82.0 mmHg ECG Resting ECG: NSR Stress ECG: No significant ST changes Clinical Exercise duration: 03:56 min Highest Stage Achieved: Exercise capacity: 1.0 METs Stress ECG Conclusion During lexiscan pt experinced no symptoms. No arrhythmias noted. Conclusion: Unremarkable lexiscan infusion. Myoview images reported separately. Test Summary REST . . . . . . . Sitting REST . . . . . . . Sitting REST 33:35 . . 82 . 150/ 90 . . Stage 1 01:00 . . 93 . . . . Stage 2 01:00 . . 92 . 118/ 74 . . Stage 3 01:00 . . 91 . 112/ 71 . . Stage 4 00:56 . . 88 . 120/ 71 . Stop exercise at 03:56 RECOVERY 01:00 . . 92 . . . . RECOVERY 02:00 . . 89 . . . . RECOVERY 02:47 . . 89 . 134/ 88 . . Electronically signed by : Carolyn Nash MD 02/23/2024 11:05:16
--- NOTE | 2024-02-22 08:02 | NM_ITS ---
APPROVED REPORT Exam: Nuclear Stress Test Indication: Palpitations, DM, High cholesterol, Family history Patient Location: Outpatient Stress Tech: Michelle MCNAMARA Tech:Sharon Garcia, ARRT, RT (R)(N) Ht: 5 ft 7 in Wt: 283 lbs Bra Size: 44D HR: 82 bpm BP: 150/90 mmHg BSA: 2.34 m2 TID: 1.14 BMI: 44.3 History: Palpitations, DM, High cholesterol, Family history Procedure: Patient received 0.4 mg of intravenous Lexiscan, resting heart rate 82 bpm, resting blood pressure 150/90 mmHg, with Lexiscan maximum heart rate achieved was 96 bpm which is % of the maximum predicted heart rate and blood pressure was 150/90 mmHg. With Lexiscan, patient denied any complaint of chest pain. Cardiac Stress and Resting SPECT Images: Cardiac Stress and Resting SPECT images were obtained using technetium 99m Myoview 28.3 mCi stress and 9.68 mCi at rest. The patient could not lie on her abdomen. Therefore, prone stress imaging could not be performed. This may affect the diagnostic interpretation of the study findings. Resting and stress imaging in supine positions demonstrate a medium sized, moderate, reversible perfusion defect in the basal to mid anterior and the basal lateral LV bush. Gated imaging demonstrates normal global LV systolic and regional LV systolic function. LVEF is calculated at 70%. Conclusion: Medium sized, moderate, reversible perfusion defect in the basal to mid anterior and the basal lateral LV bush. Gated imaging demonstrates normal global LV systolic and regional LV systolic function. LVEF is calculated at 70%. Electronically signed by : Carolyn Nash MD 02/23/2024 12:25:55
[2024-02-22] MEDS: SODIUM CHLORIDE 0.9% 10ML SYR (RAD ONLY) 10 ML IV ×2 (09:53)
[2024-02-22] MEDS: REGADENOSON 0.4MG/5ML SYRINGE 0.4 MG IV (09:53)
[2024-02-22] MEDS: ISOTOPE MYOVIEW (PER STUDY) 1 DOSE IV (09:53)
--- NOTE | 2024-02-22 10:37 | CA_ITS ---
APPROVED REPORT EXAM: Comprehensive 2D, Doppler, and color-flow Echocardiogram Bar Gauger And Lubricator Tender: Krysta Baez RDCS Ht: 5 ft 7 in Wt: 283lbs BSA: 2.34 BP: 153/76 mmHg Indications: ABN EKG,SURGERY PRE-OP,SOA,CHASE M-Mode Dimensions RVDd 1.90 cm (0.9-2.6) LA Diam 2.40 cm (1.9-4.0) LVDd 3.19 cm (3.5-5.7) LVDs 1.94 cm (3.5-5.7) IVSd 1.29 cm (0.6-1.1) PWd 1.18 cm (0.6-1.1) EF (Teich) 70.90% FS 39.20% EDV (Teich) 40.60 mL ESV (Teich) 11.80 mL LV Diastology E Decel Time 270 (160-240 msec) E/A Ratio 0.9 Aortic Valve CORA Index 1.10 cm2/m2 AoV Peak Guillermo. 163.0 (50-130 cm/s) AO Peak GR. 10.60 mmHg AO Mean GR. 5.20 (<5 mmHg) AO VTI 28.8 (18-25 cm) CORA (VTI) 2.64 (2.5-4.5 cm2) Mitral Valve MV E Max Guillermo. 78.0 (40-130 cm/s) MV A Velocity 84.0 (40-130 cm/s) E/A Ratio 0.93 MV PHT 79.0 ms Left Ventricle The left ventricle is normal size. The left ventricular systolic function is normal. The left ventricular ejection fraction is within the normal range. There is increased LV wall thickness. There is normal LV segmental wall motion. Transmitral Doppler flow pattern suggests impaired LV relaxation. LVEF is 55%. Right Ventricle The right ventricle is mildly dilated. The right ventricular systolic function is normal. Atria The left atrium is mildly dilated. The right atrium size is normal. There is no Doppler evidence of interatrial shunt. Aortic Valve The aortic valve is mildly thickened. There is no aortic valvular stenosis. Trace aortic regurgitation. Mitral Valve The mitral valve is normal in structure. No evidence of mitral valve stenosis. Trace mitral regurgitation. Tricuspid Valve The tricuspid valve leaflets are thin and pliable. Trace tricuspid regurgitation. There is insufficient TR jet to estimate RVSP. Pulmonic Valve The pulmonary valve is normal in structure. Trace pulmonic regurgitation. Great Vessels The aortic root is normal in size. The ascending aorta is normal in size. Pericardium There is no pericardial effusion. Other Information Study Quality: Fair Conclusion Normal LV systolic function. Mild RV dilation. Mild LA dilation. No significant valvular stenosis or regurgitation. Electronically signed by : Carolyn Nash MD 02/24/2024 21:44:45
== END 2024-02-22 23:59 | disposition home or self-care (01) ==
LOC: RAD 08:02
PROVIDERS: PCP Student in an Organized Health Care Education/Training Program; Visit Provider Nurse Practitioner
DX: Z01.810 Encounter for preprocedural cardiovascular examination (principal); R00.2 Palpitations; R94.31 Abnormal electrocardiogram [ECG] [EKG]; Z82.49 Family history of ischemic heart disease and other diseases of the circulatory system
CPT/HCPCS: 78452; 93017; 93018; 93306; A9502; J2785

== ENCOUNTER → 2024-03-02 10:59 | Day surgery (SDC) | payer BC, SELFPAY ==
[2024-03-02 11:03] VITALS: BMI 46.5
--- NOTE | 2024-03-02 11:57 | SUR.PREOP ---
case cancelled due to allergy to be rescheduled.
== END ==
LOC: CATHLAB 10:59
PROVIDERS: PCP Student in an Organized Health Care Education/Training Program; Visit Provider Internal Medicine
DX: R94.39 Abnormal result of other cardiovascular function study (principal); Z53.09 Procedure and treatment not carried out because of other contraindication

== ENCOUNTER 2024-03-22 13:21 | Outpatient (CLI) | payer BC, SELFPAY | END 2024-03-22 23:59 | disposition home or self-care (01) | LOC: LAB.DROPOF 03-23 13:22 | PROVIDERS: PCP Student in an Organized Health Care Education/Training Program; Visit Provider Student in an Organized Health Care Education/Training Program | DX: J02.9 Acute pharyngitis, unspecified (principal) | CPT/HCPCS: 87070; 87635 ==

== ENCOUNTER 2024-04-04 09:17 | Day surgery (SDC) | payer BC, SELFPAY ==
--- NOTE | 2024-03-23 07:52 | SUR.PREOP ---
Pt called yesterday and stated that she is not feeling well and was going to get tested for covid, if covid test was positive she is going to reschedule her procedure. Notified pt this morning of her positive COVID result and that her procedure was to be rescheduled, educated pt to go to the ER if she has worsening of symptoms.
--- NOTE | 2024-03-31 13:07 | SUR.PREOP ---
attempted to call patient twice once this morning and once just now with no answer. left voicemail to call back.
--- NOTE | 2024-03-31 13:57 | SUR.PREOP ---
called pt to go over instructions for procedure on thursday.
--- NOTE | 2024-03-31 14:00 | SUR.PREOP ---
discussed with pt in length about making sure she picked up pepcid and prednisone to take before procedure on thursday. pt verbalized understanding.
--- NOTE | 2024-03-31 14:02 | SUR.PREOP ---
called and spoke with Joselyn in Cardiology office regarding having office provider call in patients medications for contrast allergy prior to cath.
[2024-04-04] VITALS (9 sets, daily range): BP systolic 142–170; BP diastolic 79–100; PULSE 71–90; RESP 16–18; TEMP 36.7–36.8; O2SAT 95–98; BMI 46.5
--- NOTE | 2024-04-04 07:17 | IR_ITS ---
APPROVED REPORT Patient Location: Outpatient PROCEDURES Left heart catheterization Left ventriculogram Selective coronary angiography Intravascular ultrasound to the LAD and left main artery INDICATION Coronary artery disease, Angina pectoris, Preoperative evaluation, Angiographic ambiguity, Informed consent was obtained prior to the procedure. COMPLICATIONS NONE Estimated Blood Loss: LESS THAN 10 ML TECHNIQUE One percent lidocaine used to anesthetize the right anterior aspect of the wrist. The right radial artery was accessed via the Seldinger technique. A 6 Vietnamese sheath was placed in the right radial artery. 2.5 mg of Verapamil, 800 mcg of nitroglycerin, 1mg Lidocaine and 5000 U Heparin were given through the arterial sheath. The papa catheter was also used to perform left heart catheterization, left ventriculogram and selective coronary angiogram. At the end the diagnostic angiogram therapeutic heparin was administered giving a therapeutic ACT and the guide catheter was placed in left main artery followed by a Choice PT extra-support wire placed down the LAD. Intravascular ultrasound probe was advanced which demonstrated an MLA of 12 mm??? in the left main artery which was not hemodynamically significant. The proximal LAD also underwent IVUS interrogation of which no lesion was less than 4 mm???. An additional wire was placed down the circumflex artery and better angiography was performed which allowed for better opacification of the arteries. After the diagnostic angiogram was finished the apparatus was removed the sheath was removed good hemostasis was achieved using TR banding patient was transferred to the postop putting in stable condition ANGIOGRAPHIC RESULTS The left main artery Has an ostial 30% stenosis and a distal 30% stenosis The left anterior descending artery Has proximal 10 to 20% stenosis mid vessel 30% stenosis followed by an additional mid vessel concentric 40% stenosis The circumflex artery Large dominant with a proximal 40% stenosis with mid vessel 20% luminal regularities The right coronary artery Vestigial normal The SERRANO ventriculogram reveals Normal 60% The left ventricular end-diastolic pressure Severely elevated at 30 mmHg IMPRESSION Diffuse moderate coronary to disease as described above Normal ejection fraction Severely elevated LVEDP PLAN 1. Aggressive risk factor modification 2. Recommend sleep study 3. Treatment of HFpEF 4. Recommend weight loss exercise 5. Patient is a low and acceptable risk to proceed with elective foot surgery Electronically signed by : Rajendra Quintero MD 04/04/2024 14:36:13
[2024-04-04 09:46] LABS: Basophils % 0.4 % (0.1-2.0); Eosinophils # 0.1 K/mm3 (0.0-0.4); Eosinophils % 0.8 % (0.1-12.0); Hematocrit 37.2 % (37.0-47.0); Hemoglobin 11.9 g/dL (12.2-16.2); Lymphocytes # 1.1 K/mm3 (0.7-4.5); Lymphocytes % 17.7 % (10-50); Mean Corpuscular Hemoglobin 29.9 pg (27.0-31.2); Mean Corpuscular Volume 93.3 fl (81-99); Mean Platelet Volume 8.3 fl (7.4-10.4); Monocytes # 0.2 K/mm3 (0.1-1.0); Monocytes % 2.5 % (1.7-9.3); Neutrophils # 5.1 K/mm3 (1.8-7.8); Neutrophils % 78.7 % (37.0-80.0); Platelet Count 200 K/mm3 (142-424); Red Blood Count 3.99 M/mm3 (4.20-5.40); Red Cell Distribution Width 14.4 % (11.5-17.5); White Blood Count 6.5 K/mm3 (4.8-10.8)
[2024-04-04 09:59] LABS: Anion Gap 14.4 mEq/L (5-15); Blood Urea Nitrogen 13 mg/dl (7-17); Calcium 9.5 mg/dl (8.4-10.2); Carbon Dioxide 29 mmol/L (22.0-30.0); Chloride 99 mmol/L (98-107); Creatinine Clearance Estimated 97 mL/min (50-200); Estimated Glomerular Filt Rate 90 ml/min (>60); GFR (African American) 109 ML/MIN (>60); Glucose 349 mg/dl (74-100); Potassium 4.4 mmoL/L (3.5-5.1); Sodium 138 mmol/L (136-145)
[2024-04-04] MEDS: 0.9 % SODIUM CHLORIDE 500 ML 25 ML IV (13:47)
[2024-04-04] MEDS: HEPARIN 1,000 UNITS/ML 10ML VIAL (CATH LAB) 10000 UNIT IV (13:47)
[2024-04-04] MEDS: HEPARIN 1,000 UNITS/500ML NS (CATH LAB) 3000 UNIT IV (13:47)
[2024-04-04] MEDS: LIDOCAINE 1% 10ML MDV 20 ML IJ (13:48)
[2024-04-04] MEDS: VERAPAMIL 2.5MG/ML 2ML VIAL 2.5 MG IV (13:48)
[2024-04-04] MEDS: NITROGLYCERIN 800MCG/8ML SYR (CATH LAB) 800 MCG IA (13:48)
[2024-04-04] MEDS: MIDAZOLAM HCL 1MG/1ML 5ML VIAL 1 MG IV (13:53)
[2024-04-04] MEDS: diphenhydrAMINE 50MG/ML VIAL 50 MG IV (14:02)
[2024-04-04] MEDS: FAMOTIDINE 20MG/2ML VIAL 20 MG IV (14:03)
[2024-04-04] MEDS: METHYLPREDNISOLONE SOD SUCC 125MG VIAL 125 MG IV (14:04)
[2024-04-04] MEDS: FENTANYL 100MCG/2ML VIAL 25 MCG IV (14:26)
--- NOTE | 2024-04-04 15:04 | SUR.PHASEII ---
pt sitting up in bed eating sandwich and chips at this time.
[2024-04-04] MEDS: PROPOFOL 10MG/ML 20ML VIAL 80 MG IV (15:50)
[2024-04-04] MEDS: IOPAMIDOL-370 (76%);100ML BOTTLE 110 ML IV (15:57)
== END 2024-04-04 16:13 | disposition home or self-care (01) ==
PROVIDERS: PCP Student in an Organized Health Care Education/Training Program; Visit Provider Internal Medicine
DX: I25.118 Atherosclerotic heart disease of native coronary artery with other forms of angina pectoris (principal); I11.0 Hypertensive heart disease with heart failure; I50.30 Unspecified diastolic (congestive) heart failure; E11.9 Type 2 diabetes mellitus without complications; E78.5 Hyperlipidemia, unspecified; Z79.899 Other long term (current) drug therapy; Z79.4 Long term (current) use of insulin; Z87.891 Personal history of nicotine dependence; E66.01 Morbid (severe) obesity due to excess calories; Z68.42 Body mass index [BMI] 45.0-49.9, adult; Z82.49 Family history of ischemic heart disease and other diseases of the circulatory system
CPT/HCPCS: 80048; 85025; 92978; 92979; 93458; 99152; 99153; C1725; C1769; J1200; J1644; J2250; J2919; J3010; Q9967; S0028

== ENCOUNTER 2024-04-04 20:15 | Emergency (ER) | payer BC, SELFPAY ==
[2024-04-04 20:17] VITALS: BP 173/81; PULSE 82; RESP 20; TEMP 36.7; O2SAT 98; BMI 44.3
--- NOTE | 2024-04-04 20:27 | ED_ITS ---
<Statement entered by Steven Mace MD - 04/06/24 22:43> I was consulted by the TARIK, and we discussed the complexity of the problems being addressed. I approved the treatment and management plan for this patient's care in the emergency department, thus performing a substantive portion of the medical decision making. Steven Mace MD, NORA, FACEP Discharge Plan Disposition Patient Disposition: Home, Self-Care Condition: Good Prescriptions Prescriptions: No Action baclofen 10 mg tablet PO gabapentin 600 mg tablet 600 mg PO QID (DME) blood sugar diagnostic Strip See Rx Instructions .ROUTE .MEDSUPPLY Qty: 10 Rx Instructions: As directed (DME) Dexcom Research And Development Manager Misc See Rx Instructions .ROUTE .MEDSUPPLY Qty: 1 0RF Rx Instructions: As directed amitriptyline 10 mg tablet 10 mg PO DAILY Creon 24,000-76,000 -120,000 unit capsule,delayed release(DR/EC) 1 cap PO (DME) lancets 28 gauge misc See Rx Instructions .ROUTE .MEDSUPPLY Qty: 100 0RF Rx Instructions: As directed check BG TID (DME) Blood Glucose Test Strip See Rx Instructions .Route Qty: 50 2RF Rx Instructions: As directed check BG TID Afrin (oxymetazoline) 0.05 % mist 2 spray intranasal Q12H PRN (Reason: nose bleed) 3 Days Qty: 15 0RF hydrocodone-acetaminophen 10-325 mg tablet 1 tab PO PRN amoxicillin-pot clavulanate 875-125 mg tablet 1 tab PO BID 10 Days Qty: 20 0RF benzonatate 100 mg capsule 100 mg PO BID PRN (Reason: cough) Qty: 14 0RF guaifenesin 400 mg tablet 400 mg PO QID PRN (Reason: cough) Qty: 14 0RF (DME) blood glucose strip-disp meter Kit 0 1000units .Route .MEDSUPPLY Qty: 100 0RF Rx Instructions: As directed Gvoke HypoPen 1-Pack 1 mg/0.2 mL auto-injector 1 mg SQ ONCE Qty: 0.2 0RF Rx Instructions: use if glucose less than 50 and unable to eat or drink (DME) insulin pump cartridge Cartridge See Rx Instructions .ROUTE .MEDSUPPLY Qty: 5 7RF Rx Instructions: As directed insulin lispro [Humalog U-100 Insulin] 100 unit/mL solution See Rx Instructions .ROUTE .COMPLEX Qty: 20 3RF Dose Instruction: USE DIRECTED PER SLIDING SCALE (MAX OF 80 UNITS PER DAY) Rx Instructions: USE DIRECTED PER SLIDING SCALE (MAX OF 80 UNITS PER DAY) metformin 1,000 mg tablet See Rx Instructions .ROUTE .COMPLEX Qty: 60 2RF Dose Instruction: TAKE ONE TABLET BY MOUTH 2 TIMES A DAY Rx Instructions: TAKE ONE TABLET BY MOUTH 2 TIMES A DAY omeprazole 20 mg capsule,delayed release(DR/EC) See Rx Instructions .ROUTE .COMPLEX Qty: 30 2RF Dose Instruction: TAKE ONE CAPSULE BY MOUTH ONCE A DAY Rx Instructions: TAKE ONE CAPSULE BY MOUTH ONCE A DAY loratadine 10 mg tablet See Rx Instructions .ROUTE .COMPLEX Qty: 90 3RF Dose Instruction: TAKE ONE TABLET BY MOUTH ONCE A DAY Rx Instructions: TAKE ONE TABLET BY MOUTH ONCE A DAY (DME) Dexcom G6 Sensor Device See Rx Instructions .ROUTE .MEDSUPPLY Qty: 3 4RF Rx Instructions: As directed (DME) Dexcom G6 Transmitter Device See Rx Instructions .ROUTE .COMPLEX Qty: 1 10RF Dose Instruction: USE DIRECTED Rx Instructions: USE DIRECTED sertraline [Zoloft] 50 mg tablet 50 mg PO DAILY Qty: 90 0RF atorvastatin 40 mg tablet 40 mg PO DAILY Qty: 90 3RF calcium citrate-vitamin D3 315 mg-6.25 mcg (250 unit) tablet 1 tab PO DAILY Qty: 30 1RF ferrous sulfate [FeroSul] 325 mg (65 mg iron) tablet See Rx Instructions .ROUTE .COMPLEX Qty: 60 2RF Dose Instruction: TAKE ONE TABLET BY MOUTH 2 TIMES A DAY Rx Instructions: TAKE ONE TABLET BY MOUTH 2 TIMES A DAY lisinopril 10 mg tablet 10 mg PO DAILY Qty: 30 1RF fluticasone propionate [Allergy Relief (fluticasone)] 50 mcg/actuation spray,suspension 1 spray intranasal DAILY Qty: 16 2RF Rx Instructions: administer into each nostril prednisone 20 mg tablet 20 mg PO BID Qty: 6 0RF Rx Instructions: 2 po (40mg) 13 hours prior to procedure 2 po (40mg) 7 hours prior to procedure 2 po (40mg) 1 hour prior to procedure Benadryl Allergy 50 mg tablet 50 mg PO ONCE Qty: 1 0RF Rx Instructions: Take PO the day of the procedure famotidine [Pepcid] 20 mg tablet 20 mg PO ONCE Qty: 1 0RF Rx Instructions: Take 20mg PO the day of the procedure albuterol sulfate 8.5 GM HFA aerosol inhaler 2 puffs inhalation Q6HP PRN (Reason: Shortness Of Breath) 30 Days Qty: 1 5RF Referrals Follow up/Referrals: Coco Umana PA [Primary Care Provider] - See instructions Activity Restrictions/Add. Instructions Additional Instructions/Restrictions: Your scheduled follow-up with cardiology as scheduled. Return to ER for any worsening signs or symptoms as needed. Clinical Impressions Clinical Impression: Postoperative hematoma Qualifiers: Surgical complication system/body Area: circulatory system Procedure type: cardiac catheterization Qualified Code(s): I97.630 - Postprocedural hematoma of a circulatory system organ or structure following a cardiac catheterization Instructions Patient Instructions: DI for Hematoma (Bruise) Print Language Print Language: Nepali Discharge ED Provider: Steven Mace General Adult HPI General Chief complaint: Recheck/Abnormal Lab/Rx Stated complaint: Right arm discolored from Heart cath area Time Seen by Provider: 04/04/24 20:27 History of Present Illness HPI narrative: Patient presents for evaluation of post heart catheterization wound check. Patient had a heart cath today and reports that she noticed discoloration around her catheterization site. She does not however he reports any numbness or tin gling cold sensation of her right extremity. Related Data Home Medications ?Medication ?Instructions ?Recorded ?Confirmed baclofen 10 mg tablet mg PO 04/17/20 03/30/24 blood sugar diagnostic #10 ea 11/27/20 03/30/24 amitriptyline 10 mg tablet 10 mg PO DAILY 07/28/23 03/30/24 hydrocodone 10 mg-acetaminophen 1 tab PO PRN 12/29/23 03/30/24 325 mg tablet [id number]-[id number]-lnhyoab 1 cap PO 01/29/24 03/30/24 24,000-76,000-120,000 unit capsule,delayed rel (Creon) gabapentin 600 mg tablet 600 mg PO QID 02/08/24 03/30/24 Previous Rx's ?Medication ?Instructions ?Recorded blood glucose test strips with #100 ea 04/07/19 disposable meter kit blood-glucose meter,continuous #1 ea 08/21/21 (Dexcom Research And Development Manager) glucagon 1 mg/0.2 mL subcutaneous 1 mg (0.2 mL) SQ ONCE #0.2 mL 09/07/21 auto-injector (Gvoke HypoPen 1-Pack) albuterol sulfate 90 mcg/actuation 2 puffs inhalation Q6HP PRN 09/18/21 aerosol inhaler Shortness Of Breath 30 days #1 ea insulin pump cartridge #5 ea 11/28/21 insulin lispro 100 unit/mL See Rx Instructions .Route 07/03/22 subcutaneous solution (Humalog .COMPLEX #20 mL U-100 Insulin) metformin 1,000 mg tablet See Rx Instructions .Route 09/18/22 .COMPLEX #60 tabs omeprazole 20 mg capsule,delayed See Rx Instructions .Route 03/06/23 release .COMPLEX #30 caps blood sugar diagnostic (Blood #50 ea 06/30/23 Glucose Test strips) lancets 28 gauge #100 ea 06/30/23 loratadine 10 mg tablet See Rx Instructions .Route 07/10/23 .COMPLEX #90 tabs oxymetazoline 0.05 % nasal mist 2 spray intranasal Q12H PRN nose 11/16/23 (Afrin (oxymetazoline)) bleed 3 days #15 mL Dexcom G6 Transmitter #1 ea 12/04/23 (blood-glucose transmitter) blood-glucose sensor (Dexcom G6 #3 ea 12/04/23 Sensor device) sertraline 50 mg tablet (Zoloft) 50 mg PO DAILY #90 tabs 02/02/24 atorvastatin 40 mg tablet 40 mg PO DAILY #90 tabs 02/04/24 calcium citrate 315 mg 1 tab PO DAILY #30 tabs 02/09/24 calcium-vitamin D3 6.25 mcg (250 unit) tablet ferrous sulfate 325 mg (65 mg See Rx Instructions .Route 02/09/24 iron) tablet (FeroSul) .COMPLEX #60 tabs lisinopril 10 mg tablet 10 mg PO DAILY #30 tabs 02/15/24 amoxicillin 875 mg-potassium 1 tab PO BID 10 days #20 tabs 03/22/24 clavulanate 125 mg tablet benzonatate 100 mg capsule 100 mg PO BID PRN cough #14 caps 03/22/24 guaifenesin 400 mg tablet 400 mg PO QID PRN cough #14 tabs 03/22/24 fluticasone propionate 50 1 spray intranasal DAILY #16 grams 07/25/24 mcg/actuation nasal spray,suspension (Allergy Relief (fluticasone)) diphenhydramine HCl 50 mg tablet 50 mg PO ONCE #1 tab 04/01/24 (Benadryl Allergy) famotidine 20 mg tablet (Pepcid) 20 mg PO ONCE #1 tab 04/01/24 prednisone 20 mg tablet 20 mg PO BID #6 tabs 04/01/24 Allergies Allergy/AdvReac Type Severity Reaction Status Date / Time milk [MILK] Allergy Mild Verified 03/22/24 09:03 adhesive tape Allergy Verified 03/22/24 09:03 bee venom protein (honey bee) Allergy Verified 03/22/24 09:03 Iodinated Contrast Media Allergy Verified 03/22/24 09:03 DISHWASHING LIQUID AdvReac Unknown STATES IT Uncoded 03/22/24 09:03 EATS THE SKIN OFF HER HANDS [facility] Disclaimer: The information contained in this section may have been updated after the patient was seen, as this information can be updated by other users. Medical History Diabetes Atypical angina Abnormal findings on diagnostic imaging of heart and coronary circulation Family history of ischemic heart disease Mother-Stents. Encounter for pre-operative cardiovascular clearance Depression Anxiety Migraine Diabetes mellitus, type 2 Asthma Major depressive disorder Surgical History History of cholecystectomy Family History Other No significant family history Social History Smoking Status: Never smoker second hand exposure: Yes alcohol intake: never substance use type: denies use current occupational status: other Travel in the last 8 weeks: None household members: family and children housing: house number of children: 1 caffeine: Yes ROS Obtained: Yes Systems reviewed as appropriate & no additional complaints except as documented Physical Exam General General appearance: alert and in no apparent distress Respiratory Respiratory exam: Present normal lung sounds bilaterally Cardiovascular Cardiovascular exam: Present regular rate and normal rhythm Extremities Exam Extremities exam: Present full ROM and other (Patient has ecchymosis at the catheterization site at the right radial artery. There is not however any expanding hematoma patient has palpable bounding radial and ulnar pulses and is neurovascularly intact distally in the right hand) Neurological Exam Neurological exam: Present alert and oriented X3 Medical Decision Making Medical Records Medical records reviewed: Yes I reviewed the patient's medical records. Scot Inquiry Pt receiving controlled substance: No Vital Signs: 04/04/24 20:17 04/04/24 20:40 04/04/24 20:43 Temperature 98.0 F 98.0 F 98.0 F Temperature Source Oral Oral Oral Pulse Rate 80 Pulse Rate [Right Radial] 82 80 Respiratory Rate 20 16 18 Blood Pressure 163/79 H Blood Pressure [Right Arm] 173/81 H 163/79 H Blood Pressure Mean [Right Arm] 111 107 Blood Pressure Source Automatic Cuff Blood Pressure Source [Right Arm] Automatic Cuff Automatic Cuff Blood Pressure Position Sitting Blood Pressure Position [Right Arm] Sitting Sitting 02 Sat by Pulse Oximetry 98 98 Oxygen Delivery Method Room Air Room Air Room Air Lab Data Lab results reviewed: Yes I reviewed the patient's lab results. Medical Decision Narrative: In summary patient is a 48-year-old female who presents to the emergency department for evaluation of postoperative catheterization site check. Patient is dynamically stable upon arrival, febrile. Physical exam shows ecchymosis around the catheterization site but patient is neurovascular intact distally has palpable bilateral pulses at the wrist. Differential diagnosis includes normal postoperative subcutaneous hemorrhage versus possible active bleeding. Initial workup was considered however after observing patient has no evidence of expanding hematoma and is neurovascularly intact. She is not actively bleeding. I had a interact discussion with the patient and offered reassurance that this is a normal post catheterization finding and there is no evidence of any active hemorrhage or significant complication as she is neurovascularly intact distally her hand is warm full range of motion and she has palpable bounding pulses at the radius and ulnar arteries. Given this patient is appropriate for discharge with follow-up as scheduled with cardiology with strict return precautions. Critical Care Critical Care Time Critical Care Time: No
[2024-04-04 20:40] VITALS: BP 163/79; PULSE 80; RESP 16; TEMP 36.7; O2SAT 98
[2024-04-04 20:43] VITALS: BP 163/79; PULSE 80; RESP 18; TEMP 36.7; O2SAT 97
== END 2024-04-04 20:46 | disposition home or self-care (01) ==
PROVIDERS: Emergency Provider Student in an Organized Health Care Education/Training Program; PCP Student in an Organized Health Care Education/Training Program
DX: I97.630 Postprocedural hematoma of a circulatory system organ or structure following a cardiac catheterization (principal)
CPT/HCPCS: 99282

== ENCOUNTER 2024-04-06 10:29 | Outpatient (CLI) | payer BC, SELFPAY ==
--- NOTE | 2024-04-06 10:45 | CA_ITS ---
FINAL REPORT CLINICAL HISTORY: PT HAD CATH WITH RIGHT RADIAL ACCESS ON 04/04/24,BRUISING TO CATH SITE,PAIN RIGHT FOREARM FINDINGS: Spectral and Doppler waveform evaluations of the right wrist was performed. Spectral analysis was performed. There is no evidence of pseudoaneurysm. IMPRESSION: No evidence of pseudoaneurysm. Reviewed, Interpreted and Dictated by Maximo Bonilla III, MD Transcribed by Dorcas Souza Authenticated and . [facility]
== END 2024-04-06 23:59 | disposition home or self-care (01) ==
LOC: RT 10:30
PROVIDERS: PCP Student in an Organized Health Care Education/Training Program; Visit Provider Nurse Practitioner
DX: M79.601 Pain in right arm (principal); S60.221A Contusion of right hand, initial encounter; Z98.890 Other specified postprocedural states
CPT/HCPCS: 93931

== ENCOUNTER 2024-05-09 10:27 | Outpatient (CLI) | payer BC, SELFPAY ==
[2024-05-09 11:42] LABS: Alanine Aminotransferase 32 U/L (12-78); Albumin Level 3.8 g/dl (3.5-5.0); Alkaline Phosphatase 67 U/L (38-126); Anion Gap 10.1 mEq/L (5-15); Aspartate Amino Transferase 45 U/L (14-36); Bilirubin,Direct 0.3 mg/dl (0.0-0.4); Bilirubin,Indirect 0.1 mg/dL (0.0-0.9); Bilirubin,Total 0.4 mg/dl (0.2-1.3); Bilirubin,Unconjugated 0.1 mg/dL (0.0-1.1); Blood Urea Nitrogen 9 mg/dl (7-17); Calcium 9.2 mg/dl (8.4-10.2); Carbon Dioxide 32 mmol/L (22.0-30.0); Chloride 101 mmol/L (98-107); Chol/HDL Ratio 4.3 (1-3.5); Cholesterol 143 mg/dl (140-200); Estimated Glomerular Filt Rate 90 ml/min (>60); GFR (African American) 109 ML/MIN (>60); Glucose 180 mg/dl (74-100); HDL Cholesterol 33 mg/dl (40-60); Potassium 4.1 mmoL/L (3.5-5.1); Sodium 139 mmol/L (136-145); Total Protein,Serum 6.7 g/dl (6.3-8.2); Triglycerides 282 mg/dl (30-150); VLDL Cholesterol 56 mg/dL (0-40)
== END 2024-05-09 23:59 | disposition home or self-care (01) ==
LOC: LAB 10:28
PROVIDERS: PCP Student in an Organized Health Care Education/Training Program; Visit Provider Nurse Practitioner
DX: I50.30 Unspecified diastolic (congestive) heart failure (principal); E78.49 Other hyperlipidemia
CPT/HCPCS: 36415; 80048; 80061; 80076

== ENCOUNTER 2024-07-13 14:14 | Outpatient (CLI) | payer BC, SELFPAY ==
[2024-07-13 18:03] LABS: Adenovirus,PCR Not Detected (NotDetected); Coronavirus 229E Not Detected (NotDetected); Coronavirus NL63 Not Detected (NotDetected); Coronavirus OC43 Not Detected (NotDetected); Coronovirus HKU1,PCR Not Detected (NotDetected); Human Metapneumovirus Not Detected (NotDetected); Influenza A, PCR Not Detected (NotDetected); Influenza AH1, PCR Not Detected (NotDetected); Rhinovirus/Enterovirus Not Detected (NotDetected)
[2024-07-13 18:05] LABS: Bordetella Pertussis Not Detected (NotDetected); Chlamydophila Pneumoniae, PCR Not Detected (NotDetected); Coronavirus 19, PCR Not Detected (NotDetected); Influenza AH1, 2009 Not Detected (NotDetected); Influenza AH3,PCR Not Detected (NotDetected); Influenza B, PCR Not Detected (NotDetected); Mycoplasma Pneumoniae, PCR Not Detected (NotDetected); Parainfluenza 1, PCR Not Detected (NotDetected); Parainfluenza 2, PCR Not Detected (NotDetected); Parainfluenza 3, PCR Not Detected (NotDetected); Parainfluenza 4, PCR Not Detected (NotDetected); Respiratory Syncytial Virus Not Detected (NotDetected)
== END 2024-07-13 23:59 | disposition home or self-care (01) ==
LOC: LAB.DROPOF 07-14 13:49
PROVIDERS: PCP Nurse Practitioner Family; Visit Provider Nurse Practitioner Family
DX: J98.8 Other specified respiratory disorders (principal); B97.89 Other viral agents as the cause of diseases classified elsewhere
CPT/HCPCS: 87070; 87633

== ENCOUNTER 2024-09-28 08:57 | Outpatient (CLI) | payer MEDICAID, SELFPAY ==
[2024-09-28 17:38] LABS: Coronavirus 19, PCR Not Detected (NotDetected); Human Rhinovirus Not Detected (NotDetected); Influenza A, PCR Not Detected (NotDetected); Influenza B, PCR Not Detected (NotDetected); Respiratory Syncytial Virus Not Detected (NotDetected)
== END 2024-09-28 23:59 | disposition home or self-care (01) ==
LOC: LAB.DROPOF 09-29 08:57
PROVIDERS: PCP Nurse Practitioner Family; Visit Provider Nurse Practitioner Family
DX: J02.9 Acute pharyngitis, unspecified (principal)
CPT/HCPCS: 87631

== ENCOUNTER 2024-10-26 11:22 | Outpatient (CLI) | payer MEDICAID, SELFPAY ==
[2024-10-26 13:13] LABS: Coronavirus 19, PCR Not Detected (NotDetected); Human Rhinovirus Not Detected (NotDetected); Influenza A, PCR Not Detected (NotDetected); Influenza B, PCR Not Detected (NotDetected); Respiratory Syncytial Virus Not Detected (NotDetected)
== END 2024-10-26 23:59 | disposition home or self-care (01) ==
LOC: LAB.DROPOF 10-27 14:34
PROVIDERS: PCP Nurse Practitioner Family; Visit Provider Nurse Practitioner Family
DX: R05.9 Cough, unspecified (principal); R09.81 Nasal congestion; R09.89 Other specified symptoms and signs involving the circulatory and respiratory systems
CPT/HCPCS: 87631

== ENCOUNTER 2024-10-30 10:41 | Outpatient (CLI) | payer MEDICAID, SELFPAY ==
[2024-10-30 20:52] LABS: Coronavirus 19, PCR Not Detected (NotDetected); Human Rhinovirus Not Detected (NotDetected); Influenza A, PCR Not Detected (NotDetected); Influenza B, PCR Not Detected (NotDetected); Respiratory Syncytial Virus Not Detected (NotDetected)
== END 2024-10-30 23:59 | disposition home or self-care (01) ==
LOC: LAB.DROPOF 11-01 10:41
PROVIDERS: PCP Nurse Practitioner Family; Visit Provider Nurse Practitioner
DX: R50.9 Fever, unspecified (principal); J02.9 Acute pharyngitis, unspecified
CPT/HCPCS: 87631

== ENCOUNTER 2024-11-21 12:33 | Outpatient (CLI) | payer MEDICAID, SELFPAY ==
[2024-11-21 12:38] LABS: Microscopic, Urine URINE MICROSCOPIC (MICROSCOPIC)
[2024-11-21 13:11] LABS: Basophils % 0.7 % (0.1-2.0); Eosinophils # 0.2 K/mm3 (0.0-0.4); Eosinophils % 3.7 % (0.1-12.0); Hematocrit 34.8 % (37.0-47.0); Hemoglobin 11.2 g/dL (12.2-16.2); Lymphocytes # 1.3 K/mm3 (0.7-4.5); Lymphocytes % 30.1 % (10-50); Mean Corpuscular HGB Conc 32.2 g/dL (31.8-35.4); Mean Corpuscular Hemoglobin 28.4 pg (27.0-31.2); Mean Corpuscular Volume 88.1 fl (81-99); Monocytes # 0.2 K/mm3 (0.1-1.0); Monocytes % 5.1 % (1.7-9.3); Neutrophils # 2.6 K/mm3 (1.8-7.8); Neutrophils % 60.2 % (37.0-80.0); Platelet Count 175 K/mm3 (142-424); Red Blood Count 3.95 M/mm3 (4.20-5.40); Red Cell Distribution Width 13.6 % (11.5-17.5); White Blood Count 4.4 K/mm3 (4.8-10.8)
[2024-11-21 14:09] LABS: 25-OH Vitamin D, Total 39.3 ng/mL (30-100)
[2024-11-21 14:14] LABS: Hemoglobin A1C 8.4 % (4.0-6.0)
[2024-11-21 14:18] LABS: Albumin Level 4.4 g/dl (3.5-5.0); Chloride 100 mmol/L (98-107); Sodium 137 mmol/L (136-145)
[2024-11-21 14:19] LABS: Potassium 4.3 mmoL/L (3.5-5.1)
[2024-11-21 14:21] LABS: Alanine Aminotransferase 39 U/L (12-78); Albumin/Globulin Ratio 1.8 (1.1-1.8); Alkaline Phosphatase 70 U/L (38-126); Amylase 62 U/L (30-110); Anion Gap 10.3 mEq/L (5-15); Aspartate Amino Transferase 62 U/L (14-36); Bilirubin,Total 0.4 mg/dl (0.2-1.3); Blood Urea Nitrogen 11 mg/dl (7-17); Calcium 9.6 mg/dl (8.4-10.2); Carbon Dioxide 31 mmol/L (22.0-30.0); Estimated Glomerular Filt Rate 77 ml/min (>60); GFR (African American) 93 ML/MIN (>60); Globulin 2.5 g/dL (1.3-3.2); Glucose 169 mg/dl (74-100); HDL Cholesterol 36 mg/dl (40-60); Iron 70 ug/dL (37-170); Lipase 106 U/L (23-300); Total Protein,Serum 6.9 g/dl (6.3-8.2)
[2024-11-21 14:22] LABS: Chol/HDL Ratio 6.2 (1-3.5); Cholesterol 222 mg/dl (140-200); Triglycerides 360 mg/dl (30-150); VLDL Cholesterol 72 mg/dL (0-40)
[2024-11-21 14:33] LABS: Direct LDL Cholesterol 104.73 mg/dL (100-129)
[2024-11-21 14:37] LABS: Free T4 (Free Thyroxine) 1.22 ng/dl (0.78-2.19)
[2024-11-21 14:38] LABS: Total Iron Binding Capacity 296 ug/dL (265-497)
[2024-11-21 14:53] LABS: Hepatitis C Ab Qual. W/ RFX NEGATIVE (Negative)
[2024-11-21 15:00] LABS: Appearance,Urine CLEAR (Clear); Bilirubin,Urine Negative (Negative); Blood, Urine Negative (Negative); Color,Urine YELLOW (Yellow); Glucose,Urine (UA) Negative (Negative); Ketones,Urine TRACE (Negative); Leukocyte Esterase,Urine Negative (Negative); Nitrate,Urine Negative (Negative); PH,Urine 5.5 (5.0-8.5); Protein,Urine 100 (Negative); Urobilinogen,Urine 0.2 EU/dl (0.2)
[2024-11-21 15:02] LABS: Thyroid Stimulating Hormone 1.79 uIU/mL (0.465-4.68)
[2024-11-21 15:07] LABS: Ferritin 54.9 ng/ml (6.24-137)
[2024-11-21 15:33] LABS: Bacteria,Urine Trace /lpf
[2024-11-21 15:34] LABS: Creatinine,Urine Random 211 mg/dL (Not Estab.)
[2024-11-21 15:40] LABS: HIV Combo NEGATIVE (Negative)
[2024-11-21 16:44] LABS: Vitamin B12 674 pg/mL (239-931)
[2024-11-29 11:12] LABS: F001-IgE Egg White <0.10 kU/L (Class 0); F002-IgE Milk <0.10 kU/L (Class 0); F003-IgE Codfish <0.10 kU/L (Class 0); F004-IgE Wheat <0.10 kU/L (Class 0); F010-IgE Sesame Seed <0.10 kU/L (Class 0); F013-IgE Peanut <0.10 kU/L (Class 0); F014-IgE Soybean <0.10 kU/L (Class 0); F024-IgE Shrimp <0.10 kU/L (Class 0); F256-IgE Walnut <0.10 kU/L (Class 0); F338-IgE Scallop <0.10 kU/L (Class 0)
== END 2024-11-21 23:59 | disposition home or self-care (01) ==
LOC: LAB 12:34
PROVIDERS: PCP Nurse Practitioner Family; Visit Provider Nurse Practitioner Family
DX: G47.33 Obstructive sleep apnea (adult) (pediatric) (principal); Z11.59 Encounter for screening for other viral diseases; E55.9 Vitamin D deficiency, unspecified; R53.83 Other fatigue; R41.3 Other amnesia; E11.69 Type 2 diabetes mellitus with other specified complication; Z79.4 Long term (current) use of insulin; Z91.018 Allergy to other foods; Z11.4 Encounter for screening for human immunodeficiency virus [HIV]; I10 Essential (primary) hypertension; R06.83 Snoring
CPT/HCPCS: 36415; 80053; 80061; 81001; 82043; 82150; 82306; 82570; 82607; 82728; 83036; 83540; 83550; 83690; 84156; 84439; 84443; 85025; 86003; 86008; 86803; 87086; 87088; 87186; 87389